=== PATIENT | female | born 1970 | race Caucasian/White ===

== ENCOUNTER 2021-03-21 08:07 | Outpatient (REF) | payer MEDICAID, SELFPAY ==
[2021-03-21 08:43] LABS: Binax Internal Control QC Valid; Binax Now Covid-19 Ag Positive (Negative)
== END 2021-03-21 08:08 | disposition home or self-care (01) ==
LOC: HO.LAB 08:07
PROVIDERS: Visit Provider Internal Medicine
DX: Z20.822 Contact with and (suspected) exposure to COVID-19 (principal)
CPT/HCPCS: C9803

== ENCOUNTER 2021-07-03 07:51 | Outpatient (REF) | payer MEDICAID, SELFPAY ==
--- NOTE | ~2021-07-03 | MM_ITS ---
EXAMINATION: MM DIAGNOSTIC DIGITAL BREAST TOMOSYNTHESIS, BILATERAL US DIAGNOSTIC ULTRASOUND BREAST, LEFT CLINICAL INFORMATION: 50-year-old with left breast pain anterior to posterior outer breast. No discharge or palpable mass. Due for yearly. Prior mammography 2017. No known family history breast cancer. The lifetime risk of breast cancer based on the Tyrer-Cuzick Model is 7%. COMPARISON: Outside mammography: 08/26/2017, 02/08/2015 ([place]) TECHNIQUE: Digital breast tomosynthesis is performed in both the craniocaudal and mediolateral oblique views along with computer-aided detection (CAD). Synthesized 2D images are generated from the tomosynthesis. Additional bilateral CC views are obtained. Ultrasound left breast is targeted to the areas of clinical concern including 12:00 - 3:00 position and axilla. Grayscale imaging and color Doppler are performed without and with harmonics. FINDINGS: There are scattered areas of fibroglandular density (ACR BI-RADS breast composition Category b). There are no significant masses, abnormal calcifications, or other abnormalities. Parenchymal pattern is similar to prior outside exams. There is no developing density or architectural abnormality. No skin thickening or coarsening of the Konstantin's ligaments. Biopsy clip marker again noted on right anterior central breast. No significant changes. Ultrasound left breast demonstrates no cystic or solid mass, architectural abnormality, or focal duct ectasia. No skin thickening or edema tracking in soft tissue planes. The axilla shows several benign nodes with normal narda architecture and color flow. No lymphadenopathy. Results are discussed with the patient at time of visit. MM/MM tomosynthesis diagnostic BI IMPRESSION: -No mammographic evidence of malignancy or inflammatory changes. -Normal left breast ultrasound. ASSESSMENT: BI-RADS 1: Negative RECOMMENDATION: 1. Patient's breast pain should be managed based on the clinical impression. 2. Otherwise, routine annual screening mammography. This patient's information was entered into a reminder system with a target due date for their next mammogram.
== END 2021-07-03 07:52 | disposition home or self-care (01) ==
LOC: HO.MAMMO 07:51
PROVIDERS: Visit Provider Emergency Medicine
DX: N64.4 Mastodynia (principal); Z87.2 Personal history of diseases of the skin and subcutaneous tissue
CPT/HCPCS: 76642; 77062; 77066

== ENCOUNTER 2021-08-31 07:38 | Outpatient (REF) | payer MEDICAID, SELFPAY ==
[2021-08-31 08:55] LABS: MANUAL DIFF FLAG NO
[2021-08-31 10:19] LABS: Alanine Aminotransferase 49 U/L (0-31); Albumin Level 4.4 g/dL (3.5-5.0); Alkaline Phosphatase 96 U/L (39-117); Anion Gap 15 (12-20); Aspartate Amino Transferase 20 U/L (5-31); Bilirubin Total 0.4 mg/dL (0.0-1.0); Blood Urea Nitrogen 12 mg/dL (9-16); Calcium 9.5 mg/dL (8.4-10.2); Carbon Dioxide 26 mmol/L (22-29); Chloride 106 mmol/L (96-108); Cholesterol 222 mg/dL; Estimated Glomerular Filt Rate > 60; Glucose Random 96 mg/dL (60-115); HDL Cholesterol 53 mg/dL; LDL Cholesterol Calculated 143 mg/dl; Potassium 4.9 mmol/L (3.3-5.1); Sodium 142 mmol/L (135-145); Triglycerides 130 mg/dL
[2021-08-31 10:25] LABS: Basophils Percent Auto 0.4 % (0-2); Eosinophils Absolute Auto 0.3 X10*3/uL (0.0-0.4); Eosinophils Percent Auto 3.5 % (0-4); Hematocrit 49.6 % (37.0-47.0); Hemoglobin 16.3 g/dl (12.0-16.0); Imm Gran Abs Auto 0.07 X10*3/uL (0.00-0.03); Imm Gran Pct Auto 0.7 % (0.0-0.4); Lymphocytes Absolute Auto 2.8 X10*3/uL (1.2-4.9); Lymphocytes Percent Auto 29.4 % (20-40); Mean Corpuscular HGB Conc 32.9 g/dl (31.0-35.0); Mean Corpuscular Hemoglobin 29.3 pg (27.0-33.0); Monocytes Absolute Auto 0.6 X10*3/uL (0.1-1.2); Monocytes Percent Auto 6.7 % (2-11); Neutrophils Absolute Auto 5.5 x10*3/uL (2.0-8.3); Neutrophils Percent Auto 59.3 % (45-73); Platelet Count 312 X10*3/uL (160-400); Red Blood Count 5.57 X10*6/uL (4.20-5.50); Red Cell Distribution Width 13.9 % (11.0-16.0); White Blood Count 9.4 X10*3/uL (4.8-10.8)
[2021-08-31 10:40] LABS: Thyroid Stimulating Hormone 1.04 uIU/mL (0.32-4.0)
[2021-08-31 10:44] LABS: Estimated Average Glucose 103 mg/dL; Hemoglobin A1c % 5.2 %
[2021-08-31 11:34] LABS: Creatinine Urine 131.45 mg/dL; Microalbum/Creatinine Ratio Ur 8.3 ug/mg cr
[2021-09-02 08:10] LABS: HBS Num1 0.96 mIU/mL (0-7.99); HBsAGNum1 0.24 S/CO (0.00-0.99); HIV AB/AG Nonreactive (Nonreactive); HIV Num 1 0.05 S/CO (0.00-0.99); Hepatitis B Surface Antigen Negative (Negative); ~Hepatitis B Surface Antibody NONREACTIVE (Nonreactive)
[2021-09-02 08:14] LABS: ~HepC Num1 0.08 S/CO (0.00-0.79); ~Hepatitis C Antibody Nonreactive (Nonreactive)
[2021-09-02 09:37] LABS: Folate 17.3 ng/mL (> or = 4.0); Vitamin B12 955 pg/mL (200-900)
== END 2021-08-31 07:39 | disposition home or self-care (01) ==
LOC: HO.LAB 07:38
PROVIDERS: PCP Family Medicine; Visit Provider Family Medicine
DX: E66.01 Morbid (severe) obesity due to excess calories (principal); R20.2 Paresthesia of skin
CPT/HCPCS: 36415; 80053; 80061; 82043; 82306; 82607; 82746; 83036; 84443; 85025; 86706; 86803; 87340; 87389

== ENCOUNTER 2021-10-26 09:19 | Outpatient (REF) | payer MEDICAID, SELFPAY ==
[2021-10-28 08:12] LABS: HBc Num1 0.06 S/CO (0.00-0.79); Hepatitis B Core Antibody Nonreactive (Nonreactive)
[2021-10-29 20:31] LABS: Hepatitis B Viral DNA Qn - cp <1.00 NOT DETECTED Log IU/mL (NOT DETECTED); Hepatitis B Viral DNA Qn-IU/mL <10 NOT DETECTED IU/mL (NOT DETECTED)
== END 2021-10-26 09:20 | disposition home or self-care (01) ==
LOC: HO.LAB 09:19
PROVIDERS: PCP Family Medicine; Visit Provider Family Medicine
DX: Z20.5 Contact with and (suspected) exposure to viral hepatitis (principal)
CPT/HCPCS: 36415; 86704; 87517

== ENCOUNTER 2023-03-12 16:19 | Outpatient (REF) | payer OTHER, SELFPAY ==
[2023-03-12 17:56] LABS: Anion Gap 13 (12-20); Blood Urea Nitrogen 12 mg/dL (9-16); Calcium 9.5 mg/dL (8.4-10.2); Carbon Dioxide 28 mmol/L (22-29); Chloride 104 mmol/L (96-108); Estimated Glomerular Filt Rate > 60; Glucose Random 92 mg/dL (60-115); Potassium 4.3 mmol/L (3.3-5.1); Sodium 141 mmol/L (135-145)
[2023-03-12 18:15] LABS: TSH reflex Free T4 1.16 uIU/mL (0.32-4.0)
== END 2023-03-12 16:20 | disposition home or self-care (01) ==
LOC: HO.CHCLDS 16:19
PROVIDERS: Visit Provider Internal Medicine
DX: R07.89 Other chest pain (principal); F41.9 Anxiety disorder, unspecified
CPT/HCPCS: 36415; 80048; 84443; 85027

== ENCOUNTER 2023-05-04 10:18 | Outpatient (REF) | payer MEDICAID, SELFPAY ==
[2023-05-04 14:51] LABS: Hematocrit 48.1 % (37.0-47.0); Hemoglobin 15.9 g/dl (12.0-16.0); Mean Corpuscular HGB Conc 33.1 g/dl (31.0-35.0); Mean Corpuscular Hemoglobin 29.1 pg (27.0-33.0); Mean Corpuscular Volume 88.1 fL (80.0-98.0); Platelet Count 326 X10*3/uL (160-400); Red Blood Count 5.46 X10*6/uL (4.20-5.50); Red Cell Distribution Width 13.8 % (11.0-16.0); White Blood Count 9.8 X10*3/uL (4.8-10.8)
[2023-05-04 15:21] LABS: Iron 121 mcg/dL (30-160); Percent Iron Saturation 36 % (15-50); Total Iron Binding Capacity 337 mcg/dL (228-428); Unsaturated Iron Binding 216 ug/dL
[2023-05-04 15:28] LABS: Ferritin 123 ng/mL (10-250)
== END 2023-05-04 10:19 | disposition home or self-care (01) ==
LOC: HO.CHCLDS 10:18
PROVIDERS: Visit Provider Nurse Practitioner
DX: R71.8 Other abnormality of red blood cells (principal); Z86.2 Personal history of diseases of the blood and blood-forming organs and certain disorders involving the immune mechanism
CPT/HCPCS: 36415; 82728; 83540; 85027

== ENCOUNTER 2023-05-13 09:35 | Outpatient (AMB) | payer OTHER, SELFPAY ==
--- NOTE | 2023-05-13 09:52 | A.OFFVIS_ITS ---
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 She has a 52-year-old woman with no significant past medical history but smoking history, says smokes about 6 cigarettes a day. Also has family history with father having myocardial infarction in his 60s. Patient says recently due to her family situation she has lost stress and then stressful situation she gets chest tightness. She had 1 episode this morning when she was arguing with the sister about her father's health and she developed chest tightness. She came to the office and anxious state. Noted to have sinus tachycardia. She says heart rate generally when she is starting to exercise in the 80s and can go up to 120-130, she is started going to the gym about 2 months ago. With exertion she denies any significant chest tightness. She also has associated shortness of breath. No palpitations, lightheadedness, syncope. She says she has never had a heart attack before. She comes for further evaluation with a chest tightness. Her last LDL in the system is from 2021 and is 143. She says recently she had blood work outside and was told that her cholesterol was okay. [facility] Family History Father Heart attack Review of Systems Const Denies weakness ENT Denies dizziness Card Reports chest pain, Reports chest pain with activity, Denies syncope, Denies rapid heart rate, Denies pedal edema, Denies edema, Denies leg edema, Denies lightheadedness, Denies palpitations, Denies dyspnea, Denies dyspnea on exertion and Denies orthopnea Resp Denies cough, Denies dyspnea and Denies dyspnea on exertion GI Denies hematochezia and Denies change in stool character Musc Denies abnormal gait, Denies muscle cramps, Denies muscle weakness, Denies numbness, Denies radiating pain into limb and Denies tingling Neuro Denies abnormal gait, Denies dizziness, Denies syncope, Denies numbness, Denies tingling and Denies weakness Endo Denies palpitations Physical Exam Vital Signs: Last Vital Signs Pulse 114 H 05/13/23 09:54 BP 124/80 05/13/23 09:54 BMI result Body Mass Index 41.9 Const General: cooperative, comfortable, no acute distress, alert, awake, Physically active and anxious Nutritional Appearance: obese Orientation/consciousness: patient oriented x3 HEENT Head: Yes normocephalic and Yes atraumatic Neck Neck: Yes trachea midline, Yes supple and Yes no JVD Resp Effort & Inspection: normal respiratory effort Auscultation: clear to auscultation bilaterally Cardio Jugular venous distension: no JVD Palpation: normal PMI Rate: tachycardic Rhythm: regular rhythm Heart sounds: S1 normal heart sound present, S2 normal heart sound present, no click, no gallops and Murmur heart sound present systolic early GI Inspection: Yes obesity Auscultation: normal bowel sounds Skin General skin exam: no rashes or lesions noted Neuro General: patient oriented x3 and no focal motor deficits Extrem General: Yes no clubbing, cyanosis or edema Psych Appearance: grossly normal Affect: Anxious affect present Office Procedures EKG Details: EKG shows sinus tachycardia with left axis deviation with poor R-wave progression which could be leading to lead placement as well as inferior Q-waves which could be due to body habitus [id number], Complete Assessment & Plan Assessment & Plan (1) 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 She appears to be very anxious. I have advised her to participate in stress mitigation strategies and avoid stressful situations. Meanwhile will start on Toprol-XL 50 mg daily given her sinus tachycardia and symptoms for myocardial pr otection. Meanwhile she will require a workup done as soon as possible including exercise myocardial perfusion imaging as well as an echocardiogram. Possibility of stress-induced cardiomyopathy is likely as well. Complete smoking cessation was advised. If her testing is within normal limits would suggest if she is interested to pursue further evaluation with coronary calcium score to evaluate for presence of atherosclerosis which may change in therapy including requirement for statin therapy. She is currently exercising and advised her to avoid sudden strenuous exertion. If she gets unrelenting chest pain she is advised to seek emergency care. Follow up in the clinic in 4 weeks time, sooner p.r.n.. Thank you for allowing me to partake in the care Orders: Orders CA stress test Today I20.89 - Other forms of angina pectoris CA echo transthoracic complete Today I20.89 - Other forms of angina pectoris NM cardiolite stress test 2 Weeks I20.89 - Other forms of angina pectoris, R07.9 - Chest pain, unspecified Medications: New metoprolol succinate ER (Toprol XL) 50 mg PO DAILY 30 tabs 1RF I20.89 - Other forms of angina pectoris Coding Level of Care Code New Pt Level 4 (57385) Diagnoses Atypical angina I20.89 CPT Codes EKG - CPT: 00708-[id number], Complete ([id number])
[2023-05-13 09:54] VITALS: BP 124/80; PULSE 114; BMI 41.9
== END 2023-05-13 10:28 | disposition home or self-care (01) ==
PROVIDERS: PCP Family Medicine; Visit Provider Internal Medicine Cardiovascular Disease
DX: I20.89 Other forms of angina pectoris (principal)
CPT/HCPCS: 93010; 99204

== ENCOUNTER → 2023-05-13 09:35 | Outpatient (BNVA) | payer OTHER, SELFPAY | PROVIDERS: PCP Family Medicine; Visit Provider Internal Medicine Cardiovascular Disease | DX: I20.89 Other forms of angina pectoris (principal) | CPT/HCPCS: 93005 ==

== ENCOUNTER 2023-05-23 07:57 | Outpatient (REF) | payer OTHER, SELFPAY ==
--- NOTE | ~2023-05-23 | MM_ITS ---
EXAMINATION: MM SCREENING DIGITAL BREAST TOMOSYNTHESIS, BILATERAL CLINICAL INFORMATION: Screening. Asymptomatic. COMPARISON: Mammography: This study is compared with prior exams dating back to 2018. TECHNIQUE: Digital breast tomosynthesis is performed in both the craniocaudal and mediolateral oblique views along with computer-aided detection (CAD). Synthesized 2D images are generated from the tomosynthesis. FINDINGS: There are scattered areas of fibroglandular density (ACR BI-RADS breast composition Category b). There are no significant masses, abnormal calcifications, or other abnormalities. There is a tissue marker present in the right breast from prior benign percutaneous biopsy. MM/MM tomosynthesis screening BI IMPRESSION: No mammographic evidence of malignancy. ASSESSMENT: BI-RADS BI-RADS 2 - Benign Findings RECOMMENDATION: Routine annual mammography screening. 1 year F/U This examination should not preclude the clinical evaluation of a suspicious palpable abnormality. This patient's information was entered into a reminder system with a target due date for their next mammogram.
== END 2023-05-23 07:58 | disposition home or self-care (01) ==
LOC: HO.MAMMO 07:57
PROVIDERS: PCP Family Medicine; Visit Provider Nurse Practitioner
DX: Z12.31 Encounter for screening mammogram for malignant neoplasm of breast (principal)
CPT/HCPCS: 77063; 77067

== ENCOUNTER → 2023-05-23 08:15 | Outpatient (BNV) | payer OTHER, SELFPAY | PROVIDERS: PCP Family Medicine; Visit Provider Radiology Diagnostic Radiology | DX: Z12.31 Encounter for screening mammogram for malignant neoplasm of breast (principal) | CPT/HCPCS: 77063; 77067 ==

== ENCOUNTER → 2023-06-04 12:39 | Outpatient (REF) | payer OTHER, SELFPAY ==
--- NOTE | 2023-06-04 12:45 | CA_ITS ---
Transthoracic Echocardiogram Patient (Last, First, Middle): Silvia Sharma, Gender: Female Date of : 1970 Age: 52 Procedure Date: 06/04/2023 Procedure Type: Transthoracic Echocardiogram Location: OP Height: 149.86 cm Weight: 92.99 kg BSA: 1.86 m2 Heart Rate: bpm BP: 130 / 80 mmHg Business Management Analyst: TO Referring MD: Yeison Britton MD Chemical Reclamation Equipment Operator: Yeison Britton MD Symptoms: I20.89 - Other forms of angina pectoris Study Quality: Fair/Contrast ECG Rhythm: Sinus Conclusions: - 1. Normal LV ejection fraction of 60 65% 2. Normal cardiac valvular Doppler 3. No gross pericardial effusion Findings Procedure Information Contrast agent, definity, is being given per protocol without apparent complications. Left Ventricle Normal left ventricular size, thickness, and systolic function. The visually estimated ejection fraction is between 60-65%. Spectral Doppler is indicative of a normal filling pattern. Right Ventricle Normal right ventricular cavity size and systolic function. Atria Both atria are normal in size. There is no evidence of interatrial shunt. Aortic Valve Normal aortic valve structure and function. There is no aortic valve stenosis. There is no aortic valve regurgitation. Mitral Valve Normal mitral valve structure and function. There is trace mitral valve regurgitation. There is no mitral valve stenosis. Pulmonic Valve The pulmonic valve is likely normal. Tricuspid Valve Normal tricuspid valve structure. Tricuspid regurgitation envelope is inadequate for calculation of right ventricular systolic pressure. Normal right atrial pressure. Great Vessels The pulmonary artery was not well visualized. There is no dilatation of the ascending aorta measuring 3.00 cm. Venous The inferior vena cava is normal in size and collapses greater than 50% with inspiration. Pericardium/Pleural There is no evidence of pericardial effusion. Prior Study Comparison No prior study available for comparison. Measurements 2D Linear Measurements IVSd: 0.96 0.6-0.9/0.6-1.0 cm LVIDd: 4.63 3.9-5.3/4.2-5.9 cm LVIDd Index: 2.49 2.4-3.2/2.2-3.1 cm/m2 LVIDs: 3.27 2.0-3.6 cm LVPWd: 0.94 0.7-1.1 cm LA Diam: 3.30 2.7-3.8/3.0-4.0 cm LAIDs Index: 1.77 1.5-2.3 cm/m2 LV Mass: 186.76 67-162/88-224 g LV Mass Index: 100.41 43-95/49-115 g/m2 LVOT Diam: 2.10 3.0+(-)1.3 cm 2D Systolic Function EF 4C: 58.90 >55% EF 2C: 62.30 >55% EF BiP: 61.10 >55% Mitral Valve MV Pk E: 0.80 MV PK A: 0.69 MV Decel Time: 163.00 E/A: 1.20 E'Lateral: 8.38 E'Medial: 8.81 E/E' Med: 9.00 E/E' Lat: 9.50 PHT: 48.00 MVA PHT: 4.58 Decel [place]: 4.89 Aortic Valve AoV Pk Jerrell: 1.59 AoV Mn Jerrell: 1.11 AoV VTI: 0.29 AoV Pk Grad: 10.00 Aov Mn Grad: 6.00 [place] Cont.VTI: 2.63 LVOT LVOT Pk Jerrell: 1.04 LVOT Mn Jerrell: 0.70 LVOT VTI: 0.22 LVOT Pk Grad: 4.00 LVOT Mn Grad: 2.00 LVOT Diam: 2.10 LVOT Area: 3.46 Diastolic Function MV Pk E: 0.80 MV Pk A: 0.69 E/A: 1.20 E'Medial: 8.81 E/E' Med: 9.00 E' Laterial: 8.38 E/E' Lat: 9.50 Right Ventricle TAPSE (mm): 21.70 TVS' Jerrell: 10.40 Tricuspid Valve RA Press: 3.00 Great Vessels Aorta Sinus of Valsalva: 2.99 2.0-3.[address] [place]: 2.01 1.7-3.4 cm Ao Asc: 3.00 2.1-3.4 cm Updated in Other Vendor System with Status of Final Yeison Britton MD electronically signed on 06/05/2023 12:48:29 PM with status of Final
== END ==
LOC: HO.CARD 12:39
PROVIDERS: PCP Family Medicine; Visit Provider Internal Medicine Cardiovascular Disease
DX: I20.89 Other forms of angina pectoris (principal)
CPT/HCPCS: 93306; Q9957

== ENCOUNTER → 2023-06-04 12:45 | Outpatient (BNV) | payer OTHER, SELFPAY | PROVIDERS: PCP Family Medicine; Visit Provider Internal Medicine Cardiovascular Disease | DX: I20.89 Other forms of angina pectoris (principal) | CPT/HCPCS: 93306 ==

== ENCOUNTER → 2023-06-15 10:08 | Outpatient (REF) | payer OTHER, SELFPAY ==
--- NOTE | 2023-06-15 10:11 | CA_ITS ---
Acquisition Time: 2023-06-15 10:26:52 Total Exercise Time: 00:07:54 Test Indications: CP Medications: SEE H Protocol: CARLITOS Max HR: 169 BPM 101% of Pred: 167 BPM Max BP: 194/090 mmHG Max Work Load: 9.8 METS Exercise stress test exercise 7 min 54 sec of Carlitos protocol achieving 97% MPHR, wiith mild to moderate SOB, no chest discomfort, with resting HTN max BP 194/90, without EKG changes. Echo images obtained by [employer] at rest and immediately post peak exercise. Definity contrast used. Blood pressure returned to baseline at 3 minutes recovery.Test reviewed with Dr. Marks. Referred By: Yeison Britton Overread By: Tanya Yuen
== END ==
LOC: HO.CARD 10:08
PROVIDERS: PCP Family Medicine; Visit Provider Internal Medicine Cardiovascular Disease
DX: I20.89 Other forms of angina pectoris (principal)
CPT/HCPCS: 93350; Q9957

== ENCOUNTER → 2023-06-15 10:11 | Outpatient (BNV) | payer OTHER, SELFPAY | PROVIDERS: PCP Family Medicine; Visit Provider Nurse Practitioner | DX: R06.02 Shortness of breath (principal) | CPT/HCPCS: 93016; 93018; 93350; 93352 ==

== ENCOUNTER 2023-10-05 08:14 | Outpatient (AMB) | payer OTHER, SELFPAY ==
[2023-10-05 08:27] VITALS: BP 122/80; PULSE 103; BMI 39.6
--- NOTE | 2023-10-05 08:27 | MHC.OFFVIS ---
Vital Signs 10/05/23 08:27 Height 4 ft 11 in Weight 196 lb 3.382 oz BMI 39.6 BP 122/80 Blood Pressure Location Lt brachial Position Sitting Pulse 103 H Pulse Source Pulse Oximeter Intake Visit Reasons: 7 wk f/up mibi/ echo(rs) Allergies amoxicillin Allergy (Severe, Verified 10/05/23 08:29) Vomiting Medication List - Last Reconciled 10/05/23 by Mari Guido, GERIATRIC NURSE-C metoprolol succinate ER (Toprol XL) 50 mg PO DAILY HPI HPI 7 wk f/up mibi/ echo(rs): Details: Silvia is a 53-year-old female with past medical history hyperlipidemia, smoking who reported chest tightness and underwent a echocardiogram and stress echocardiogram and now presents for follow-up. Today she reports that she was under extreme stress with the chronic illness and eventual passing of her father. She said she had to deal with several family members which added to her stress levels. At that time she was noticing some tightness in her chest. At this time things have settled down in her life and she is not experiencing any further chest tightness. She has no chest discomfort at rest or with activity. No shortness of breath, lightheadedness, presyncope, syncope, falls, PND, orthopnea or edema. She continues to smoke and is aware of the risks this puts on her health. She does not engage in any routine exercise. COUNTS INCLUDE 234 BEDS AT THE [facility] Family History Father Heart attack Cancer of brain Social History Patient Tobacco Use Status: Former Tobacco user Review of Systems Const All systems reviewed & are unremarkable except as noted in HPI and below ENT Denies dizziness Card Denies chest pain, Denies chest pain at rest, Denies chest pain with activity, Denies rapid heart rate, Denies pedal edema, Denies edema, Denies leg edema, Denies lightheadedness, Denies palpitations, Denies dyspnea, Denies dyspnea on exertion and Denies orthopnea Resp Denies cough, Denies dyspnea and Denies dyspnea on exertion GI Denies hematochezia and Denies change in stool character Musc Denies abnormal gait, Denies limited range of motion, Denies muscle cramps, Denies muscle weakness, Denies numbness, Denies radiating pain into limb, Denies stiffness and Denies tingling Neuro Denies abnormal gait, Denies dizziness, Denies numbness and Denies tingling Endo Denies palpitations Physical Exam Vital Signs: Last Vital Signs Pulse 103 H 10/05/23 08:27 BP 122/80 10/05/23 08:27 BMI result Body Mass Index 39.6 Const General: cooperative, healthy appearing, comfortable and no acute distress Orientation/consciousness: patient oriented x3 Neck Neck: Yes normal visual inspection and Yes no JVD Resp Effort & Inspection: normal respiratory effort Auscultation: clear to auscultation bilaterally, no crackles, no rales, no rhonchi and no wheezes Cardio Jugular venous distension: no JVD Rate: regular rate Rhythm: regular rhythm Heart sounds: S1 normal heart sound present, S2 normal heart sound present, no murmurs and no rubs Neuro General: patient oriented x3 Extrem General: Yes normal to inspection and No no pedal edema Psych Appearance: grossly normal Mental Status: mental status grossly normal Speech and movement: Normal speech and movement present Assessment & Plan Assessment & Plan (1) Atypical angina: Code(s): I20.89 - Other forms of angina pectoris Category: Medical Plan: On last visit reported chest tightness in situations of anxiety/stress. Cardiac risks of smoking, hyperlipidemia and family history. EKG done last visit shows sinus tachycardia, can not exclude prior inferior and anterior infarcts, rate 114. She did undergo an echocardiogram on 06/04/2023 showing EF 60-65%, no valve abnormalities and no regional wall motion abnormality. A stress echocardiogram done on 06/15/2023 showed exercise 8 minutes with shortness of breath, no EKG changes of ischemia, hypertensive blood pressure response, no echo evidence of ischemia or diastolic dysfunction. Today she reports that her prior chest symptoms have resolved. Her stress levels have come down compared to a few months ago. She is now experiencing grief as her father did pass away in July. All test results reviewed with her in detail. Signs and symptoms of angina reviewed. Recommend she increase physical activity, recommended walking for exercise. Eventual smoking cessation discussed. She will continue to follow with her PCP. Cardiology follow-up as needed. (2) HLD (hyperlipidemia): Code(s): E78.5 - Hyperlipidemia, unspecified Category: Medical Plan: [place] LDL goal less than 100. Being followed by her PCP. (3) Smoking: Code(s): F17.200 - Nicotine dependence, unspecified, uncomplicated Category: Social Hx Plan: As above Plan Time spent on chart review, documentation, interview and assessment Coding Level of Care Code Est Pt Level 3 (23853) Diagnoses Atypical angina I20.89 HLD (hyperlipidemia) E78.5 Smoking F17.200 Time Spent (min) 24
== END 2023-10-05 08:49 | disposition home or self-care (01) ==
PROVIDERS: PCP Family Medicine; Visit Provider Nurse Practitioner Family
DX: I20.89 Other forms of angina pectoris (principal); E78.5 Hyperlipidemia, unspecified; F17.200 Nicotine dependence, unspecified, uncomplicated
CPT/HCPCS: 99213

== ENCOUNTER → 2023-10-05 08:14 | Outpatient (BNVA) | payer OTHER, SELFPAY | PROVIDERS: PCP Family Medicine; Visit Provider Nurse Practitioner Family ==

== ENCOUNTER 2023-12-01 14:49 | Outpatient (REF) | payer OTHER, SELFPAY ==
[2023-12-06 10:14] LABS: HPV mRNA E6/E7 Not Detected (Not Detected)
== END 2023-12-01 14:50 | disposition home or self-care (01) ==
LOC: HO.CHCLNP 14:49
PROVIDERS: Visit Provider Family Medicine
DX: Z12.4 Encounter for screening for malignant neoplasm of cervix (principal); Z11.51 Encounter for screening for human papillomavirus (HPV)
CPT/HCPCS: 36415; 87624; 88175

== ENCOUNTER 2024-06-10 15:43 | Outpatient (REF) | payer MEDICAID, SELFPAY ==
--- OUTSIDE RECORDS SUMMARY | 2024-06-10 16:49 | XMS_ITS | Clinical Summary ---
Author Organization [employer] Address [address] [place] [address] Care Team Providers Care Newspaper Peddler Name Role Phone Silvia Bowers MD Primary Care Provider [phone] Allergies Active Allergy Reactions Criticality Noted Date Comments Amoxicillin 02/26/2023 Ibuprofen Nausea And Vomiting 08/08/2008 Medications * This document contains information received from the source organization and may not represent a complete record from that organization. metoprolol succinate XL (Toprol-XL) 50 MG 24 hr tablet TAKE 1 TAB (50 MG) ORALLY DAILY NEED FOLLOW-UP APPT 4 Active terbinafine (LamISIL AT) 1 % cream Apply topically 2 times daily. 90 g 4 Active Semaglutide-Jeff ght Management 1 MG/0.5ML solution auto-injectorIn dications:Obesi ty Inject under the skin. Active Active Problems Problem Noted Date Diagnosed Date Cervical cancer screening 12/01/2023 Assessment & Plan (12/01/2023 9:41 AM EDT): 53 y.o. here for cervical cancer screening. Will continue monitoring following ASCCP guidelines. Tinea pedis of both feet 10/21/2023 Assessment & Plan (10/21/2023 11:27 AM EDT): Prescribing Terbinafine for symptoms. Relevant Medications Terbinafine (Lamisil AT) 1% cream. History of anemia 05/04/2023 Assessment & Plan (05/04/2023 10:28 AM EST): -reports history of severe iron deficiency anemia post- -cbc from 03/12 only reveal elevated hematocrit -iron studies ordered today -will call with results Abnormal hematocrit 05/04/2023 Assessment & Plan (05/04/2023 10:17 AM EST): -slightly elevated hematocrit at 48.6% -no history of asthma or diagnosed obstructive sleep apnea -sleep study ordered in the setting of hypertension, increased neck circumference and reported history of snoring -repeat cbc ordered today Breast cancer screening by mammogram 05/04/2023 Assessment & Plan (05/04/2023 10:07 AM EST): -due for routine screening -reports history of breast lump removals -orders placed for test completion Other chest pain 05/04/2023 Assessment & Plan (05/04/2023 10:16 AM EST): -may be due to anxiety, but will rule out true cardiac abnormality -previously referred to cardiology. Has appointment 05/12 -continue with dietary changes and daily exercise -JAGRUTI-7 score 7; PhQ-9 score 1. Decline medication at this time. Will rather engage with therapy -list of therapist provided -follow-up 3 months or sooner as needed Adjustment disorder with anxious mood 03/13/2023 Assessment & Plan (03/13/2023 1:39 PM EST): During IBH Consult Silvia presenting with anxiety, feeling as if something awful will happen and chest tightness; for a period of 0-6 mo in response to the stress of weight gain and in the context of menopause and home stressors. Silvia reported that she has had periods of anxiety in the past but that intensity and frequency of anxiety has increased over the past 3 months due to a significant increase in her weight. She reported that she has been taking nutritional supplements through [employer] and that she would be stopping them. She expressed concern around her health with the weight gain and reported that she would like to stop smoking cigarettes. PROTECTIVE FACTORS high family cohesion Interventions provided: [Check all that apply] Supportive counseling Validation of emotions Unconditional positive regard Psychoeducation on anxiety symptoms and coping mechanisms Motivational Interviewing Emotion Regulation Measurement Tools [Check all that apply and include scores] JAGRUTI-7- score of 4 indicating some impact on social and occupational functioning STAGES OF CHANGE COMPLETATION PLAN: (check all that apply) New/Additional Services needed [facility], Behavioral Health Integration Plan Patient Self Plan Patient to utilize skills provided in intervention , Patient to reach out to [facility] team as needed, and Patient to engage in OP therapy Rule Out Diagnoses- Generalized Anxiety Disorder Behavioral Health Diagnoses At this time Silvia meets criteria for Visit Diagnoses: Problem List Items Addressed This Visit Other Adjustment disorder with anxious mood Class 1 obesity due to exces s calories with serious comorbidity and body mass index (BMI) of 34.0 to 34.9 in adult 06/17/2012 Assessment & Plan (02/22/2024 11:18 AM EST): Starting weight 206 lbs Current weight 175 lbs Total weight loss 31 lbs , 15%. Pt responding well to current dose, advised to begin muscle training with cardio. Pt will continue to follow up with nurse at [facility] to manage medication. Pt declined TDAP, PCV-20, Influenza, Covid, and Zoster today. Assessment & Plan (10/21/2023 11:26 AM EDT): Referral to [facility] for further assistance with weight loss. 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 Alcohol Use Standard Drinks/Week Comments Never 0 (1 standard drink = 0.6 oz pur e alcohol) Depression Answer Date Recorded Patient Health Questionnaire-9 Score 1 05/04/2023 Patient Health Questionnaire-9 Score 1 05/04/2023 Last PHQ-9: Questionnaire Data Not on file 0 05/04/2023 Housing Stability Answer Date Recorded What is your housing situation today? I have trisha esqueda 05/04/[address] you li ve. Do you have problems with any of the following? None of the above 05/04/2023 Food Insecurity Answer Date Recorded Within the past 12 months, y ou worried that your food would run out before you got money to buy more: Never True 05/04/2023 Within the past 12 months,th e food you bought just didn't last and you didn't have enough money to get more: Never True Transportation Answer Date Recorded In the past 12 months, has l ack of transportation kept you from medical appts, meetings, work or from getting things needed for daily living? No 05/04/2023 Utilities Answer Date Recorded In the past 12 months, has t he electric, gas, oil or water company threatened to shut off services in your home? No 05/04/2023 Depression Answer Date Recorded Patient Health Questionnaire-2 Score 1 05/04/2023 Comments No Sex and Gender Information Value Date Recorded Sex Assigned at Female 01/06/2022 10:40 AM EDT Legal Sex Female 10:40 AM EDT Gender Identity Female 01/06/2022 10:40 AM EDT Sexual Orientation Don't know 01/06/2022 10 :40 AM EDT Last Filed Vital Signs Vital Sign Reading Time Taken Comments Blood Pressure 124/78 04/12/2024 9:03 AM EST Pulse 78 04/12/2024 9:03 AM EST Temperature 36.6 ??C (97.8 ??F) 04/12/2024 9:03 AM ES T Respiratory Rate 20 04/12/2024 9:03 AM EST Oxygen Saturation 98% 04/12/2024 9:03 AM EST Inhaled Oxygen Concentration - - Weight 78.3 kg (172 lb 9.6 oz) 04/12/2024 9:03 A M EST Height 151 cm (4' 11.45 ) 04/12/2024 9:03 AM EST Body Mass Index 34.34 04/12/2024 9:03 AM EST Plan of Treatment Health Maintenance Due Date Last Done Comments CT Colonography 1969 Colonoscopy 1969 Colorectal Cancer Screening 1969 FIT DNA/Cologuard 1969 FIT 1969 FOBT 1969 Sigmoidoscopy 1969 Alcohol/Substance Use Screening 1981 Hepatitis B Vaccines (1 of 3 - 19+ 3-dose series) 1988 Pneumococcal Vaccine: 50+ Years (1 of 2 - PCV) 1988 Depression Screening 05/04/2024 05/04/2023, 05/04/2023 SDOH Screening 05/04/2024 05/04/2023 Influenza Vaccine (#1) 2024 Postp oned from 11/08/2023 (Patient Refused) COVID-19 Vaccine (1 - 2023-2 5 season) 2025 Postponed from 11/07 (Patient Refused) DTaP/Tdap/Td Vaccines (3 - T d or Tdap) 02/21/2025 06/17/2012, 10/21/2000 Postponed from 06/17/2022 (Patient Refused) Tobacco Screening 02/21/2025 02/22/2024 Zoster Vaccines (1 of 2) 02/21/2025 Pos tponed from 09/19/2019 (Patient Refused) Mammogram 05/22/2025 05/23/2023, 07/03/2021, 07/03/2021 Lipid Panel 08/31/2026 08/31/2021 Cervical Cancer Screening 11/30/2028 HPV/Cotest 11/30/2028 12/01/2023 Pap Smear 11/30/2028 12/01/2023 RSV Patients and Patients Aged 60 years or older (1 - 1-dose 75+ series) 2044 HIV Screening Completed 08/31/2021 Hepatitis C Screening Completed 08/31/2021 HIB Vaccines Aged Out No longer eligi ble based on patient's age to complete this topic HPV Vaccines Aged Out No longer eligi ble based on patient's age to complete this topic Hepatitis A Vaccines Aged Out No long er eligible based on patient's age to complete this topic IPV Vaccines Aged Out No longer eligi ble based on patient's age to complete this topic Meningococcal Vaccine Aged Out No blake demetrio eligible based on patient's age to complete this topic RSV under 20 months Aged Out No longe r eligible based on patient's age to complete this topic Rotavirus Vaccines Aged Out No longer eligible based on patient's age to complete this topic Procedures Procedure Name Priority Date/Time Associated Diagnosis Comments THINPREP IMAGING PAP AND HPV MRNA E6/E7 Routine 12/01/2023 9:30 AM EDT BI MAMMOGRAM SCREENING TOMOSYNTHESIS BILATERAL Routine 05/23/2023 8:15 AM EDT Breast cancer screening by mammogram [facility] HISTORICAL HEPATITIS C ANTIBODY RFLX Routine 08/31/2021 8:53 AM EDT [facility] HISTORICAL HIV AB/AG Routine 08/31/2021 8:53 AM EDT [facility] HISTORICAL LIPID PANEL Routine 08/31/2021 8:53 AM EDT from Last 3 Months or Most Recently Relevant to Health Maintenance Results * ThinPrep Imaging Pap and HPV mRNA E6/E7 (12/01/2023 9:30 AM EDT) HPV nRNA E6/E7 Not Detected Not Detected [facility] Comment:Methodology: Transcr iption-Mediated AmplificationThis assay detects E6/E7 viral messenger RNA (mRNA) from 14high-risk HPV types (16,18,31,33,35,39,45,51,52,56,58,59,66,68).Cervical sources are required for HPV testing.If a vaginal source from a patient who has had atotal hysterectomy with removal of cervix wassubmitted, please contact the testing laboratoryfor alternative testing options.For additional information, please refer tohttp://education.BioSET/faq/WSG445t5(This link if provided for information/educational purposes only.)THIS TEST WAS PERFORMED AT:[facility] [place] [id number] WEEKS MD SOURCE: SEE NOTE [facility] Comment:None given Report Status: [facility] Clinical Information: SEE NOTE [facility] Comment:None given LMP: SEE NOTE [facility] Comment:NONE GIVEN Prev. PAP: SEE NOTE [facility] Comment:NONE GIVEN Prev. BX: SEE NOTE [facility] Comment:NONE GIVEN Statement Of Adequacy: SEE NOTE [facility] Comment:Satisfactory for noe luation.Endocervical/transformation zone componentpresent. General Categorization: [facility] Interpretation/Result: SEE NOTE [facility] Comment:Cytology Results: Ne gative for intraepitheliallesion or malignancy. Cytology Comment SEE NOTE [facility] Comment:This Pap test has be en evaluated with computerassisted technology. Business Administration Program Chair: SEE NOTE [facility] Comment:DCR, CT(ASCP)CT scre ening location: [place] [address] Review Business Administration Program Chair: SEE NOTE [facility] Comment:MXD, CT (ASCP)CT scr eening location: [place] [address] Pathologist [facility] PAP Infection [facility] See Note SEE NOTE [facility] Comment:EXPLANATORY NOTE:The Pap is a screening test for cervical cancer. It isnot a diagnostic test and is subject to false negativeand false positive results. It is most reliable when asatisfactory sample, regularly obtained, is submittedwith relevant clinical findings and history, and whenthe Pap result is evaluated along with historic andcurrent clinical information. 12/01/2023 9:30 AM EDT 12/01/2023 2:51 PM EDT Narrative [facility] - 12/07/2023 2:27 PM EDT SEE SCANNED RESULTS IN EMR us Silvia Bowers MD LAB PATHOLOGY ORDERABLES Dee l Result [facility] [address] [place] [address] [phone] * BI Mammogram Screening Tomosynthesis Bilateral (05/23/2023 8:15 AM EDT) Anatomical Region Laterality Modality Breast Bilateral Mammography 05/23/2023 8:15 AM EDT Narrative 06/05/2023 4:04 PM EDT ? [facility] ? [address] ?[place] [id number] ? Mammography Report ? Signed ? Patient: Lapite,Silvia ?MR#: [id number] ?? [id number] ? : 1970 ?Acct:[id number] ? Age/Sex: 52 / F ?ADM Date: 05/23/23 ? Loc: HO.MAMMO ? Attending Dr: Janneth Appram ? Ordering Physician: Sonia,Janneth ?Results: 2Benign Fi ?? ndings ? Date of Service: 05/23/23 ?Follow Up: 1 Year From Orig ?? inal Mammogram ? Procedure(s): MM tomosynthesis screening BI ?? Accession Number(s): [id number] ? cc: Janneth Scott; Silvia Bowers MD ? EXAMINATION: ?? MM SCREENING DIGITAL BREAST TOMOSYNTHESIS, BILATERAL ? CLINICAL INFORMATION: ? Screening. Asymptomatic. ? COMPARISON: ?? Mammography: This study is compared with prior exams dating back to ?? 2017. ? TECHNIQUE: ?? Digital breast tomosynthesis is performed in both the craniocaudal and ?? mediolateral oblique views along with computer-aided detection (CAD). ?? Synthesized 2D images are generated from the tomosynthesis. ? FINDINGS: ?? There are scattered areas of fibroglandular density (ACR BI-RADS breast ?? composition Category b). ? There are no significant masses, abnormal calcifications, or other ?? abnormalities. ? There is a tissue marker present in the right breast from prior benign ?? percutaneous biopsy. ? MM/MM tomosynthesis screening BI ?? IMPRESSION: ?? No mammographic evidence of malignancy. ? ASSESSMENT: ? BI-RADS BI-RADS 2 - Benign Findings ? RECOMMENDATION: ?? Routine annual mammography screening. ? 1 year F/U ? This examination should not preclude the clinical evaluation of a ?? suspicious palpable abnormality. ? This patient's information was entered into a reminder system with a ?? target due date for their next mammogram. ? Dictated By: ?Amparo Marrufo MD ? Signed By: ?<Electronically signed by Amparo Marrufo MD in OV> ? 06/05/23 1601 ? DD/ 0815 ? TD/TT: ? Community Nurse: ? Procedure Note Jean Paul, Image - 06/05/2023 [facility] [address] [place] [address] Mammography Report Signed Patient: Silvia SharmaMR#: [id number] : 1970Acct:[id number] Age/Sex: 52 / FADM Date: 05/23/23 Loc: HO.MAMMO Attending Dr: Janneth Scott Ordering Physician: Janneth ScottResults: Damaris solano Date of Service: 05/23/23Follow Up: 1 Year From Orig inal Mammogram Procedure(s): MM tomosynthesis screening BI Accession Number(s): [id number] cc: Janneth Scott; Silvia Bowers MD EXAMINATION: MM SCREENING DIGITAL BREAST TOMOSYNTHESIS, BILATERAL CLINICAL INFORMATION: Screening. Asymptomatic. COMPARISON: Mammography: This study is compared with prior exams dating back to 2018. TECHNIQUE: Digital breast tomosynthesis is performed in both the craniocaudal and mediolateral oblique views along with computer-aided detection (CAD). Synthesized 2D images are generated from the tomosynthesis. FINDINGS: There are scattered areas of fibroglandular density (ACR BI-RADS breast composition Category b). There are no significant masses, abnormal calcifications, or other abnormalities. There is a tissue marker present in the right breast from prior benign percutaneous biopsy. MM/MM tomosynthesis screening BI IMPRESSION: No mammographic evidence of malignancy. ASSESSMENT: BI-RADS BI-RADS 2 - Benign Findings RECOMMENDATION: Routine annual mammography screening. 1 year F/U This examination should not preclude the clinical evaluation of a suspicious palpable abnormality. This patient's information was entered into a reminder system with a target due date for their next mammogram. Dictated By: Amparo Marrufo MD Signed By: <Electronically signed by Amparo Marrufo MD in OV> 06/05/23 1601 DD/ 0815 TD/TT: Community Nurse: Janneth Scott NP IMG BI PROCEDURES Edited Result - Final * HEPATITIS C ANTIBODY RFLX (08/31/2021 8:53 AM EDT) Hepatitis C Antibody Nonreactive Nonreactive [facility] Comment: Antibodies to HCV not detected; does not exclude early acute HCV infection. 08/31/2021 8:53 AM EDT Silvia Bowers MD HISTORICAL/NON ORDERABLE LABS Final Result [facility] [address] * HIV AB/AG (08/31/2021 8:53 AM EDT) HIV AB/AG Nonreactive Nonreactive [facility] Comment: HIV-1 p24 Ag and/or HIV-1/HIV-2 Ab not detected. ?? A test result that is nonreactive does not exclude the possibility of exposure to or infection with HIV-1 and/or HIV-2. Nonreactive results in this assay for individuals with prior exposure to HIV-1 and/or HIV-2 may be due to antigen and antibody levels that are below the limit of detection of this assay. ?? The [facility] HIV Ag/Ab Combo assay result and supplemental assay results should be interpreted in conjunction with the patient's clinical presentation, history and other laboratory results. ??If the results are inconsistent with clinical evidence, additional testing is suggested to confirm the result. Hepatitis B Surface Antibody NONREACTIVE Nonreactive [facility] Comment:Nonreactive: < 8.00 mIU/mL Hepatitis B Surface Antigen Negative Negative [facility] 08/31/2021 8:53 AM EDT us Silvia Bowers MD HISTORICAL/NON ORDERABLE LABS Final Result [facility] [address] * (ABNORMAL) LIPID PANEL (08/31/2021 8:53 AM EDT) [facility] Signature Cholesterol 222 mg/dL [facility] Comment: Desirable Cholesterol: ?less than 200 mg/dL Borderline High Cholesterol: ??200-239 mg/dL High Cholesterol: ? greater than 239 mg/dL HDL Cholesterol 53 mg/dL [facility] Comment: Desirable HDL: ??greater than 40 mg/dL ?? Note: This HDL assay may give artificially ? low results in patients with liver disease. LDL Cholesterol Calculated 143 mg/dl [facility] Comment: Desirable LDL: ? less than 100 mg/dL Near Optimal/Above Optimal LDL: ??110-129 mg/dL Borderline High LDL: ? 130-159 mg/dL High LDL: ?160-189 mg/dL Very High LDL: ? greater than or equal to ?190 mg/dL Triglycerides 130 mg/dL [facility] Comment: Desirable Triglyceride: ? less than 150 mg/dL Borderline High Triglyceride ??150-199 mg/dL High Triglyceride: ?200-499 mg/dL Very High Triglyceride: ? greater than or equal to ? 5OO mg/dL Vitamin D 25-OH Total 20.0 >30 ng/mL [facility] Comment: Health Based Reference Values* ?? < 20 ??ng/mL ??Deficient 20-30 ng/mL ??Insufficient > 30 ??ng/mL ??Sufficient ?? *Gary MAGALLON. N Engl J Med. 2007;357:266-280 ?? Care must be taken in interpreting Vitamin D results from different laboratories and methodologies. ??Published data demonstrated that results from patients undergoing hemodialysis may show a negative bias when tested with various automated 25-OH vitamin D assays when compared to LC-MS/MS. ?? When testing samples from patients whose predominant form of Vitamin D is Vitamin D2, such as patients receiving Vitamin D2 supplementation, results that are subtherapeutic should be confirmed with another method such as LC-MS/MS. Thyroid Stimulating Hormone 1.04 0.32 - 4.0 uIU/mL [facility] Comment:TSH 3rd Generation ( [facility]) Alanine Aminotransferase 49(H) 0 - 31 U/L [facility] Albumin Level 4.4 3.5 - 5.0 g/dL [facility] Alkaline Phosphatase 96 39 - 117 U/L [facility] Anion Gap 15 12 - 20 [facility] Aspartate Amino Transferase 20 5 - 31 U/L [facility] Bilirubin Total 0.4 0.0 - 1.0 mg/dL [facility] Blood Urea Nitrogen 12 9 - 16 mg/dL [facility] Calcium 9.5 8.4 - 10.2 mg/dL [facility] Carbon Dioxide 26 22 - 29 mmol/L [facility] Chloride 106 96 - 108 mmol/L [facility] Creatinine, Serum 0.82 0.5 - 1.4 mg/dL [facility] Estimated Glomerular Filt Rate >60 [facility] Comment: NOTE: ??For -Senegalese individuals, multiply the result ?by . ?? Chronic Kidney Disease: ??Estimated GFR < 60 mL/min/1.73m2 Severe Kidney Disease: ??Estimated GFR < 15 mL/min/1.73m2 Glucose Random 96 60 - 115 mg/dL [facility] Potassium 4.9 3.3 - 5.1 mmol/L [facility] Comment:Sample slightly hemo lyzed Sodium 142 135 - 145 mmol/L [facility] Total Protein 7.0 6.5 - 8.0 g/dL [facility] 08/31/2021 8:53 AM EDT us Silvia Bowers MD HISTORICAL/NON ORDERABLE LABS Final Result Performing Organization Address City/State/[facility] Co de Phone Number [facility] [address] from Last 3 Months or Most Recently Relevant to Health Maintenance Insurance [facility] C[facility] Care Teams Newspaper Peddler Relationship Specialty Start Date End Date Silvia Bowers MD [address] [place] [id number] PCP - General Family Medicine 08/15/21
== END 2024-06-10 15:44 | disposition home or self-care (01) ==
LOC: HO.MAMMO 15:43
PROVIDERS: PCP Family Medicine; Visit Provider Family Medicine
DX: Z12.31 Encounter for screening mammogram for malignant neoplasm of breast (principal)
CPT/HCPCS: 77063; 77067

== ENCOUNTER → 2024-06-10 15:45 | Outpatient (BNV) | payer MEDICAID, SELFPAY | PROVIDERS: PCP Family Medicine; Visit Provider Internal Medicine | DX: Z12.31 Encounter for screening mammogram for malignant neoplasm of breast (principal) | CPT/HCPCS: 77063; 77067 ==

== ENCOUNTER 2024-08-22 11:50 | Outpatient (REF) | payer MEDICAID, SELFPAY ==
--- OUTSIDE RECORDS SUMMARY | 2024-08-22 13:24 | XMS_ITS | Clinical Summary ---
Author Organization [employer] Address [address] [place] [address] Care Team Providers Care Stapler Coil [employer] Name Role Phone Silvia Bowers MD Primary Care Provider [phone] Allergies Active Allergy Reactions Criticality Noted Date Comments Amoxicillin 02/26/2023 Ibuprofen Nausea And Vomiting 08/08/2008 Medications * This document contains information received from the source organization and may not represent a complete record from that organization. metoprolol succinate XL (Toprol-XL) 50 MG 24 hr tablet TAKE 1 TAB (50 MG) ORALLY DAILY NEED FOLLOW-UP APPT 09/29/19 24 Active terbinafine (LamISIL AT) 1 % cream Apply topically 2 times daily. 90 g 10/21/19 24 025 Discontinued Semaglutide-We ight Management 1 MG/0.5ML solution auto-injectorI ndications:Obe sity Inject under the skin. 025 Discontinued Active Problems Problem Noted Date Diagnosed Date Class 2 obesity with body ma ss index (BMI) of 36.0 to 36.9 in adult 08/22/2024 Vaginal cysts 08/22/2024 Obstructive sleep apnea syndrome 08/22/2024 Cervical cancer screening 12/01/2023 Assessment & Plan [...] intervention , Patient to reach out to [facility] team as needed, and Patient to engage [...] continue to follow up with nurse at [facility] to manage medication. Pt declined TDAP, PCV-20, Influenza, Covid, and Zoster today. Assessment & Plan (10/21/2023 11:26 AM EDT): Referral to [employer] for further assistance with weight loss. Tobacco abuse 12/11/2011 Rosacea 06/10/2005 Encounters Date Type Department Care Team Description 08/22/2024 11:00 AM EDT Office Visit [facility] [address] [place] [address] Silvia Bowers MD Class 2 obesity with body mass index (BMI) of 36.0 to 36.9 in adult, unspecified obesity type, unspecified whether serious comorbidity present (Primary Dx); Vaginal cysts; Obstructive sleep apnea syndrome 08/22/2024 Travel 08/19/2024 Telephone [facility] [address] [place] [address] Silvia Bowers MD Chart Prep 08/11/2024 Patient Outreach [facility] [address] [place] [address] Silvia Bowers MD Pre-visit Planning (SDOH screening completed on 07/13/24) 07/13/2024 Patient Outreach [facility] [address] [place] [address] Silvia Bowers MD Pre-visit Planning (SDOH screening negative and Tobacco screening positive) 06/10/2024 Orders Only [facility] [address] [place] [address] Silvia Bowers MD from Last 3 Months Immunizations Immunization Administration Dates Next Due Tdap 06/17/2012,10/21/2000 Family [...] housing situation today? I have trisha esqueda 07/13/[address] you li ve. Do you have problems with any of the following? None of the above 07/13/2024 Food Insecurity Answer Date Recorded Within the past 12 months, y ou worried that your food would run out before you got money to buy more: Never True 07/13/2024 Within the past 12 months,th e food you bought just didn't last and you didn't have enough money to get more: Never True 09/2024 Transportation Answer Date Recorded In the past 12 months, has l ack of transportation kept you from medical appts, meetings, work or from getting things needed for daily living? No 07/13/2024 Utilities Answer Date Recorded In the past 12 months, has t he electric, gas, oil or water company threatened to shut off services in your home? No 07/13/2024 Depression Answer Date Recorded Patient Health Questionnaire-2 Score 1 05/04/2023 Internet Access Answer Date Recorded Internet Access Q1 Yes 07/13/2024 Internet Access Q2 Not on file 07/13/2024 Comments No Sex and Gender Information Value Date Recorded Sex Assigned at Female 01/06/2022 10:40 AM EDT Legal Sex Female 10:40 AM EDT Gender Identity Female 01/06/2022 10:40 AM EDT Sexual Orientation Don't know 01/06/2022 10 :40 AM EDT Last Filed Vital Signs Vital Sign Reading Time Taken Comments Blood Pressure 126/77 08/22/2024 11:08 AM EDT Pulse 88 08/22/2024 11:08 AM EDT Temperature 36.9 ??C (98.5 ??F) 08/22/2024 11:08 AM E DT Respiratory Rate 16 08/22/2024 11:08 AM EDT Oxygen Saturation 98% 08/22/2024 11:08 AM EDT Inhaled Oxygen Concentration - - Weight 83 kg (183 lb) 08/22/2024 11:08 AM EDT Height 151 cm (4' 11.45 ) 08/22/2024 11:08 AM ED T Body Mass Index 36.4 08/22/2024 11:08 AM EDT Plan of Treatment Health Maintenance Due Date Last Done Comments CT Colonography 1969 Colonoscopy 1969 Colorectal Cancer Screening 1969 FIT DNA/Cologuard 1969 FIT 1969 FOBT 1969 Sigmoidoscopy 1969 Disability Screening 1969 Alcohol/Substance Use Screening 1981 Hepatitis B Vaccines (1 of 3 - 19+ 3-dose series) 1988 Pneumococcal Vaccine: 50+ Years (1 of 2 - PCV) 1988 Depression Screening 05/04/2024 05/04/2023, 05/04/19 24 Influenza Vaccine (Season Ended) 2024 COVID-19 Vaccine ( - season) 2025 Postponed from 11/08/2023 (Patient Refused) DTaP/Tdap/Td Vaccines (3 - Td or Tdap) 02/21/2025 06/17/2012, 10/21/2000 Postponed from 06/17/2022 (Patient Refused) Tobacco Screening 02/21/2025 02/22/2024 Zoster Vaccines (1 of 2) 02/21/2025 Pos tponed from 09/19/2019 (Patient Refused) SDOH Screening 07/13/2025 07/13/2024 Mammogram 06/10/2026 06/10/2024, 0308/2023, 07/03/2021, Additional history exists Lipid Panel 08/31/2026 08/31/2021 Cervical Cancer Screening [...] patient's age to complete this topic Meningococcal B Vaccine Aged Out No l onger eligible based on patient's age to complete [...] Procedure Name Priority Date/Time Associated Diagnosis Comments BI MAMMOGRAM SCREENING TOMOSYNTHESIS BILATERAL Routine 06/10/2024 3:45 PM EDT THINPREP IMAGING PAP AND HPV MRNA E6/E7 Routine 12/01/2023 9:30 AM EDT ZJOSIE HISTORICAL HEPATITIS C ANTIBODY RFLX Routine 08/31/2021 8:53 AM EDT ZZZ HISTORICAL HIV AB/AG Routine 08/31/2021 8:53 AM EDT ZZZ HISTORICAL LIPID PANEL Routine 08/31/2021 8:53 AM EDT from Last 3 Months or Most Recently Relevant to Health Maintenance Results * BI Mammogram Screening Tomosynthesis Bilateral (06/10/2024 3:45 PM EDT) Anatomical Region Laterality Modality Breast Bilateral Mammography 06/10/2024 3:45 PM EDT Narrative 06/17/2024 5:12 PM EDT ? [facility] ? [address] ?[place] [address] ?[phone] ? Mammography Report ? Signed ? Patient: Silvia Sharma ?MR#: [id number] ?? [id number] ? : 1970 ?Acct:[id number] ? Age/Sex: 53 / F ?ADM Date: 06/10/24 ? Loc: HO.MAMMO ? Attending Dr: Silvia Bowers MD ? Ordering Physician: Silvia Bowers MD ?Results: 1Nega ?? tive ? Date of Service: 06/10/24 ?Follow Up: 1 Year From Orig ?? inal Mammogram ? Procedure(s): MM tomosynthesis screening BI ?? Accession Number(s): [id number] ? cc: Silvia Bowers MD ? EXAMINATION: ?? MM SCREENING DIGITAL BREAST TOMOSYNTHESIS, BILATERAL ? CLINICAL INFORMATION: ? Screening. Asymptomatic. ? COMPARISON: ?? Mammography: Comparison is made with available priors ? TECHNIQUE: ?? Digital breast mammography with tomosynthesis is performed in both the ?? craniocaudal and mediolateral oblique views along with computer-aided ?? detection (CAD). ? FINDINGS: ?? There are scattered areas of fibroglandular density (ACR BI-RADS breast ?? composition Category b). ? There are no significant masses, abnormal calcifications, or other ?? abnormalities. ? MM/MM tomosynthesis screening BI ?? IMPRESSION: ?? No mammographic evidence of malignancy. ? ASSESSMENT: ? BI-RADS BI-RADS 1 - Negative ? RECOMMENDATION: ?? Routine annual mammography screening. ? 1 year F/U ? This examination should not preclude the clinical evaluation of a ?? suspicious palpable abnormality. ? This patient's information was entered into a reminder system with a ?? target due date for their next mammogram. ? Electronically signed by: ??Matilda Anderson DO ??06/17/2024 05:09 PM EDT ? Dictated By: ?Matilda Anderson DO ? Signed By: ?<Electronically signed by Matilda Anderson, DO in OV> ? 06/17/24 1709 ? DD/ 1545 ? TD/TT: 06/10/24 1603 ? Workforce Advisor: ? Procedure Note Singhter, Image - 06/17/2024 [facility] [address] [place] [address] Mammography Report Signed Patient: Silvia SharmaMR#: [id number] : 1970Acct:[id number] Age/Sex: 53 / FADM Date: 06/10/24 Loc: [facility].MAMMO Attending Dr: Silvia Bowers MD Ordering Physician: Silvia Bowersesults: 1Nega tive Date of Service: 06/10/24Follow Up: 1 Year From Orig inal Mammogram Procedure(s): MM tomosynthesis screening BI Accession Number(s): [id number] cc: Silvia Bowers MD EXAMINATION: MM SCREENING DIGITAL BREAST TOMOSYNTHESIS, BILATERAL CLINICAL INFORMATION: Screening. Asymptomatic. COMPARISON: Mammography: Comparison is made with available priors TECHNIQUE: Digital breast mammography with tomosynthesis is performed in both the craniocaudal and mediolateral oblique views along with computer-aided detection (CAD). FINDINGS: There are scattered areas of fibroglandular density (ACR BI-RADS breast composition Category b). There are no significant masses, abnormal calcifications, or other abnormalities. MM/MM tomosynthesis screening BI IMPRESSION: No mammographic evidence of malignancy. ASSESSMENT: BI-RADS BI-RADS 1 - Negative RECOMMENDATION: Routine annual mammography screening. 1 year F/U This examination should not preclude the clinical evaluation of a suspicious palpable abnormality. This patient's information was entered into a reminder system with a target due date for their next mammogram. Electronically signed by: Matilda Anderson DO 06/17/2024 05:09 PM EDT RP Dictated By: Matilda Anderson DO Signed By: <Electronically signed by Matilda Anderson DO in OV> 06/17/24 1709 DD/ 1545 TD/TT: 06/10/24 1603 Workforce Advisor: us Silvia Bowers MD IMG BI PROCEDURES Final Resul t * ThinPrep Imaging Pap and HPV mRNA E6/E7 (12/01/2023 9:30 AM EDT) HPV nRNA E6/E7 Not Detected Not Detected [facility] Comment:Methodology: Transcr iption-Mediated AmplificationThis assay detects E6/E7 viral messenger RNA (mRNA) from 14high-risk HPV types (16,18,31,33,35,39,45,51,52,56,58,59,66,68).Cervical sources are required for HPV testing.If a vaginal source from a patient who has had atotal hysterectomy with removal of cervix wassubmitted, please contact the testing laboratoryfor alternative testing options.For additional information, please refer [email or web address] Old Reader/faq/SMS756v9(This link if provided for information/educational purposes only.)THIS TEST WAS PERFORMED AT:[facility] [address] [id number] WEEKS MD SOURCE: SEE NOTE [facility] Comment:None given Report Status: [facility] Clinical Information: SEE NOTE [facility] Comment:None given LMP: SEE NOTE [facility] Comment:NONE GIVEN Prev. PAP: SEE NOTE [facility] Comment:NONE GIVEN Prev. BX: SEE NOTE [facility] Comment:NONE GIVEN Statement Of Adequacy: SEE NOTE [facility] Comment:Satisfactory for noe luation.Endocervical/transformation zone componentpresent. General Categorization: [facility] Interpretation/Result: SEE NOTE [facility] Comment:Cytology Results: Ne gative for intraepitheliallesion or malignancy. Cytology Comment SEE NOTE [facility] Comment:This Pap test has be en evaluated with computerassisted technology. Antiquer: SEE NOTE [facility] Comment:DCR, CT(ASCP)CT scre ening location: [place] [address] Review Antiquer: SEE NOTE [facility] Comment:MXD, CT (ASCP)CT scr eening location: [place] [address] Pathologist [facility] PAP Infection [facility] See Note SEE NOTE [facility] Comment:EXPLANATORY NOTE:The Pap is a screening test for cervical cancer. It isnot a diagnostic test and is subject to false negativeand false positive results. It is most reliable when asatisfactory sample, regularly obtained, is submittedwith relevant clinical findings and history, and whenthe Pap result is evaluated along with historic andcurrent clinical information. 12/01/2023 9:30 AM EDT 12/01/2023 2:51 PM EDT Narrative [facility] - 12/07/2023 2:27 PM EDT SEE SCANNED RESULTS IN EMR us Silvia Bowers MD LAB PATHOLOGY ORDERABLES Dee mendez Result [facility] [address] [place] [address] [phone] * HEPATITIS C ANTIBODY RFLX (08/31/2021 8:53 AM EDT) [facility] Hepatitis C Antibody Nonreactive Nonreactive [facility] Comment: Antibodies to HCV not detected; does not exclude early acute HCV infection. 08/31/2021 8:53 AM EDT Silvia Bowers MD HISTORICAL/NON ORDERABLE LABS Final Result Performing Organization Address [facility] de Phone Number [facility] [address] [place] [address], * HIV AB/AG (08/31/2021 8:53 AM EDT) [facility] HIV AB/AG Nonreactive Nonreactive [facility] [...] detection of this assay. ?? The [employer] HIV Ag/Ab Combo assay result and supplemental assay results should be interpreted in conjunction with the patient's clinical presentation, history and other laboratory results. ??If the results are inconsistent with clinical evidence, additional testing is suggested to confirm the result. Hepatitis B Surface Antibody NONREACTIVE Nonreactive [facility] Comment:Nonreactive: < 8.00 mIU/mL Hepatitis B Surface Antigen Negative Negative [facility] 08/31/2021 8:53 AM EDT Silvia Bowers MD HISTORICAL/NON ORDERABLE LABS Final Result Performing Organization Address [facility] Co de Phone Number [facility] [address] [place] [address], * (ABNORMAL) LIPID PANEL (08/31/2021 8:53 AM EDT) Cholesterol 222 mg/dL [facility] Comment: Desirable Cholesterol: ?less than 200 mg/dL Borderline High Cholesterol: ??200-239 mg/dL High Cholesterol: ? greater than 239 mg/dL HDL Cholesterol 53 mg/dL [facility] Comment: Desirable HDL: ??greater than 40 mg/dL ?? Note: This HDL assay may give artificially ? low results in patients with liver disease. LDL Cholesterol Calculated 143 mg/dl [facility] Comment: Desirable LDL: ? less than 100 mg/dL Near Optimal/Above Optimal LDL: ??110-129 mg/dL Borderline High LDL: ? 130-159 mg/dL High LDL: ?160-189 mg/dL Very High LDL: ? greater than or equal to ?190 mg/dL Triglycerides 130 mg/dL [facility] Comment: Desirable Triglyceride: ? less than 150 mg/dL Borderline High Triglyceride ??150-199 mg/dL High Triglyceride: ?200-499 mg/dL Very High Triglyceride: ? greater than or equal to ? 5OO mg/dL Vitamin D 25-OH Total 20.0 >30 ng/mL [facility] Comment: Health Based Reference Values* [...] Stimulating Hormone 1.04 0.32 - 4.0 uIU/mL [facility] Comment:TSH 3rd Generation ( [facility]) Alanine Aminotransferase 49(H) 0 - 31 U/L [facility] Albumin Level 4.4 3.5 - 5.0 g/dL [facility] Alkaline Phosphatase 96 39 - 117 U/L [facility] Anion Gap 15 12 - 20 [facility] Aspartate Amino Transferase 20 5 - 31 U/L [facility] Bilirubin Total 0.4 0.0 - 1.0 mg/dL [facility] Blood Urea Nitrogen 12 9 - 16 mg/dL [facility] Calcium 9.5 8.4 - 10.2 mg/dL [facility] Carbon Dioxide 26 22 - 29 mmol/L [facility] Chloride 106 96 - 108 mmol/L [facility] Creatinine, Serum 0.82 0.5 - 1.4 mg/dL [facility] Estimated Glomerular Filt Rate >60 [facility] Comment: NOTE: ??For -[place] individuals, multiply the result ?by 1.210. ?? Chronic Kidney Disease: ??Estimated GFR < [...] Bowers MD HISTORICAL/NON ORDERABLE LABS Final Result [facility] [address] from Last 3 Months or Most Recently Relevant to Health Maintenance Insurance C3 Care Teams Stapler Coil Unit Relationship Specialty Start Date End Date Silvia Bowers MD [address] [place] [id number] PCP - General Family Medicine 08/15/21
[2024-08-22 14:06] LABS: MANUAL DIFF FLAG NO
[2024-08-22 14:14] LABS: Basophils Absolute Auto 0.1 X10*3/uL (0.0-0.2); Basophils Percent Auto 0.8 % (0-2); Eosinophils Absolute Auto 0.4 X10*3/uL (0.0-0.4); Eosinophils Percent Auto 4.5 % (0-4); Hematocrit 47.2 % (37.0-47.0); Hemoglobin 15.8 g/dl (12.0-16.0); Imm Gran Abs Auto 0.04 X10*3/uL (0.00-0.03); Imm Gran Pct Auto 0.5 % (0.0-0.4); Lymphocytes Absolute Auto 2.7 X10*3/uL (1.2-4.9); Lymphocytes Percent Auto 32.8 % (20-40); Mean Corpuscular HGB Conc 33.5 g/dl (31.0-35.0); Mean Corpuscular Hemoglobin 29.4 pg (27.0-33.0); Mean Corpuscular Volume 87.7 fL (80.0-98.0); Mean Platelet Volume 9.7 fL (9.4-12.3); Monocytes Absolute Auto 0.9 X10*3/uL (0.1-1.2); Monocytes Percent Auto 10.5 % (2-11); Neutrophils Absolute Auto 4.2 x10*3/uL (2.0-8.3); Neutrophils Percent Auto 50.9 % (45-73); Platelet Count 310 X10*3/uL (160-400); Red Blood Count 5.38 X10*6/uL (4.20-5.50); Red Cell Distribution Width 14.1 % (11.0-16.0); White Blood Count 8.3 X10*3/uL (4.8-10.8)
[2024-08-22 14:38] LABS: Iron 68 mcg/dL (30-160); Magnesium 2.1 mg/dL (1.6-2.6); Percent Iron Saturation 25 % (15-50); Total Iron Binding Capacity 273 mcg/dL (228-428); Unsaturated Iron Binding 205 ug/dL
[2024-08-22 14:45] LABS: Vitamin D 25-OH Total 39.7 ng/mL (>30)
[2024-08-22 14:59] LABS: Folate 11.6 ng/mL (> or = 4.0)
[2024-08-22 15:30] LABS: Vitamin B12 832 pg/mL (200-900)
== END 2024-08-22 11:51 | disposition home or self-care (01) ==
LOC: HO.CHCLDS 11:50
PROVIDERS: Visit Provider Family Medicine
DX: E66.812 Obesity, class 2 (principal); Z68.36 Body mass index [BMI] 36.0-36.9, adult
CPT/HCPCS: 36415; 82306; 82607; 82746; 83540; 83735; 85025

== ENCOUNTER 2024-12-23 09:36 | Outpatient (REF) | payer MEDICAID, SELFPAY ==
--- OUTSIDE RECORDS SUMMARY | 2024-12-22 10:15 | XMS_ITS | Encounter Summary ---
Author Organization [employer] Address [address] [place] [address] [address] [place] [address] Care Team Providers Care Hat Ironer Name Role Phone Silvia Bowers MD Primary Care Provider [phone] Reason for Referral * Consultation (Routine) - Pending Review Specialty Diagnoses / Procedures Referred By Neymar layton Referred To Contact Gastroenterology Diagnoses Encounter for screening for malignant neoplasm of colon Mandi Pena MD [address] [place] [address] Phone: tel: fax: Referral ID Status Reason Start Date Expiration Date Visits Requested Visits Authorized [id number] Pending Review Specialty Services Required 12/22/2025 1 1 * Consultation (Routine) - Authorized Specialty Diagnoses / Procedures Referred By Neymar layton Referred To Contact Nutrition Diagnoses Class 2 obesity due to excess calories without serious comorbidity with body mass index (BMI) of 36.0 to 36.9 in adult Mandi Pena MD [address] [place] [address] Phone: tel: fax: Referral ID Status Reason Start Date Expiration Date Visits Requested Visits Authorized [id number] Authorized Consult and Treat 12/22/2024 12/22/2025 1 1 Reason for Visit * Reason Comments Annual Exam Encounter Details Date Type Department Care Team ([facility] Contact Info) Description 12/22/2024 10:15 AM EDT Office Visit [facility] [address] [place] [address] Mandi Pena MD [address] [place] [address] Obstructive sleep apnea syndrome (Primary Dx); Class 2 obesity due to excess calories without serious comorbidity with body mass index (BMI) of 36.0 to 36.9 in adult; Tachycardia; Encounter for annual wellness visit; Tobacco abuse; Encounter for screening for malignant neoplasm of colon; Screening-pulmonary TB Social History Tobacco Use Types Packs/Day Years [...] Answer Date Recorded Patient Health Questionnaire-9 Score 3 12/22/2024 Patient Health Questionnaire-9 Score 3 12/22/2024 Last PHQ-9: Questionnaire Data Not on file 1 Housing Stability Answer Date Recorded What is [...] Date Recorded Patient Health Questionnaire-2 Score 1 12/22/2024 Internet Access Answer Date Recorded Internet Access Q1 Yes 07/13/2024 Internet Access Q2 Not on file 07/13/2024 Comments No Sex and Gender Information Value Date Recorded Sex Assigned at Female 01/06/2022 10:40 AM EDT Legal Sex Female 10:40 AM EDT Gender Identity Female 01/06/2022 10:40 AM EDT Sexual Orientation Straight 12/22/2024 4: 02 PM EDT documented as of this encounter Last Filed Vital Signs Vital Sign Reading Time Taken Comments Blood Pressure 139/79 12/22/2024 10:06 AM EDT Pulse 87 12/22/2024 10:06 AM EDT Temperature 36.4 C (97.5 F) 12/22/2024 10:06 AM EDT Respiratory Rate 18 12/22/2024 10:06 AM EDT Oxygen Saturation 97% 12/22/2024 10:06 AM EDT Inhaled Oxygen Concentration - - Weight 90.7 kg (200 lb) 12/22/2024 10:06 AM EDT Height 151.1 cm (4' 11.5 ) 12/22/2024 10:06 AM E DT Body Mass Index 39.72 12/22/2024 10:06 AM EDT documented in this encounter Functional Status * Over the past 2 weeks, how often have you been bothered by any of the following problems? Question Answer Date of Assessment Author Patient Health Questionnaire -2 Score 1 12/22/2024 10:07 AM Noelle Barrera MA * Little interest or pleasure in doing things Answer Date of Assessment Author Several days 12/22/2024 10:07 AM Janine Barrera MA * Feeling down, depressed, or hopeless Answer Date of Assessment Author Not at all 12/22/2024 10:07 AM Janine Barrera MA * Trouble falling or staying asleep, or sleeping too much Answer Date of Assessment Author Not at all 12/22/2024 10:07 AM Janine Barrera MA * Feeling tired or having little energy Answer Date of Assessment Author Not at all 12/22/2024 10:07 AM Janine Barrera MA * Poor appetite or overeating Answer Date of Assessment Author Several days 12/22/2024 10:07 AM Janine Barrera MA * Feeling bad about yourself - or that you are a failure or have let yourself or your family down Answer Date of Assessment Author Not at all 12/22/2024 10:07 AM Janine Barrera MA * Trouble concentrating on things, such as reading the newspaper or watching television Answer Date of Assessment Author Several days 12/22/2024 10:07 AM Janine Barrera MA * Moving or speaking so slowly that other people could have noticed? Or the opposite - being so fidgety or restless that you have been moving around a lot more than usual. Answer Date of Assessment Author Not at all 12/22/2024 10:07 AM Janine Barrera MA * Thoughts that you would be better off or hurting yourself in some way Answer Date of Assessment Author Not at all 12/22/2024 10:07 AM Janine Barrera MA * Patient Health Questionnaire-9 Score Answer Date of Assessment Author 3 12/22/2024 10:07 AM Janine aBrrera MA * How difficult have these problems made it for you to do your work, take care of things at home, or get along with other people? Answer Date of Assessment Author Not difficult at all 12/22/2024 10:07 AM Noelle Vital MA documented as of this encounter Progress Notes * Mnadi Pena MD - 12/22/2024 10:15 AM EDT Subjective Patient ID: Silvia Sharma is a 54 y.o. female who presents for Annual Exam. Well Adult Physical Patient here for a comprehensive physical exam. Review of Systems Constitutional: Negative. Respiratory: Negative. Negative for shortness of breath. Cardiovascular: Negative for chest pain and palpitations. Gastrointestinal: Negative. Genitourinary: Negative. Musculoskeletal: Negative for neck pain. Neurological: Negative for headaches. Objective Physical Exam Constitutional: Appearance: Normal appearance. HENT: Head: Normocephalic and atraumatic. Right Ear: Tympanic membrane normal. Left Ear: Tympanic membrane normal. Mouth/Throat: Mouth: Mucous membranes are moist. Eyes: Pupils: Pupils are equal, round, and reactive to light. Cardiovascular: Rate and Rhythm: Normal rate and regular rhythm. Pulmonary: Effort: Pulmonary effort is normal. Breath sounds: Normal breath sounds. Abdominal: General: Abdomen is flat. Palpations: Abdomen is soft. Musculoskeletal: General: Normal range of motion. Skin: General: Skin is warm. Neurological: General: No focal deficit present. Mental Status: She is alert. Psychiatric: Mood and Affect: Mood normal. Behavior: Behavior normal. Assessment/Plan Diagnoses and all orders for this visit: Obstructive sleep apnea syndrome Comments: Pt advised to be compliant with CPAP machine Advised to maintain a low-fat, low-cholesterol diet. Counseled regarding importance of weight loss. Class 2 obesity due to excess calories without serious comorbidity with body mass index (BMI) of 36.0 to 36.9 in adult Advised to maintain a low-fat, low-cholesterol diet. Counseled regarding importance of weight loss. Counseled re: potential co-morbidities including cardiovascular disease. Maintain a low-sodium diet (less than 2 grams per day). Maintain a regular cardiovascular exercise program. - Referral to Nutrition Therapy; Future - Basic Metabolic Panel; Future - Lipid Panel, Standard; Future - Hepatic Function Panel; Future Tachycardia Comments: Stable on Metoprolol as needed Encounter for annual wellness visit Tobacco abuse Encounter for screening for malignant neoplasm of colon - Referral to Gastroenterology; Future Screening-pulmonary TB - T-SPOT??.TB; Future Other orders - triamcinolone (Kenalog) 0.1 % cream; Apply topically if needed in the morning and at bedtime (pain and swelling). documented in this encounter Plan of Treatment Scheduled Orders Name Type Priority Associated Diagnoses Orde r Schedule T-SPOT .TB Lab Routine Screening-pulmonary TB Expected: 12/22/2024 (Approximate), Expires: 12/22/2025 Basic Metabolic Panel Lab Routine Class 2 obesity due to excess calories without serious comorbidity with body mass index (BMI) of 36.0 to 36.9 in adult Expected: 12/22/2024 (Approximate), Expires: 12/22/2025 Lipid Panel, Standard Lab Routine Class 2 obesity due to excess calories without serious comorbidity with body mass index (BMI) of 36.0 to 36.9 in adult Expected: 12/22/2024 (Approximate), Expires: 12/22/2025 Hepatic Function Panel Lab Routine Class 2 obesity due to excess calories without serious comorbidity with body mass index (BMI) of 36.0 to 36.9 in adult Expected: 12/22/2024 (Approximate), Expires: 12/22/2025 Scheduled Referrals Name Type Priority Associated Diagnoses Order Schedule Referral to Nutrition Therapy Outpatient Referral Routine Class 2 obesity due to excess calories without serious comorbidity with body mass index (BMI) of 36.0 to 36.9 in adult Expected: 12/22/2024 (Approximate), Expires: 12/22/2025 Referral to Gastroenterology Outpatient Referral Routine Encounter for screening for malignant neoplasm of colon Expected: 12/22/2024 (Approximate), Expires: 12/22/2025 documented as of this encounter Visit Diagnoses Diagnosis Obstructive sleep apnea syndrome- Primary Obstructive sleep apnea (adult) (pediatric) Class 2 obesity due to excess calories without serious comorbidity with body mass index (BMI) of 36.0 to 36.9 in adult Tachycardia Unspecified tachycardia Encounter for annual wellness visit Tobacco abuse Tobacco use disorder Encounter for screening for malignant neoplasm of colon Screening-pulmonary TB Screening examination for pulmonary tuberculosis documented in this encounter Additional Health Concerns Assessment Noted Time PHQ-9 Depression Total Score: 3 12/23/19 25 10:07 AM EDT documented as of this encounter Care Teams Hat Ironer Relationship Specialty Start Date End Date Silvia Bowers MD [address] [place] [id number] PCP - General Family Medicine 08/15/21 documented as of this encounter
--- OUTSIDE RECORDS SUMMARY | 2024-12-23 10:56 | XMS_ITS | Clinical Summary ---
Author Organization [employer] Address [address] [facility] 7t [place] [address] Care Team Providers Care Supervisor Customer Complaint Service Name Role Phone Silvia Bowers MD Primary Care Provider [phone] Allergies Active Allergy Reactions Criticality Noted Date Comments Amoxicillin 02/26/2023 Ibuprofen Nausea And Vomiting 08/08/2008 Medications * This document contains information received from the source organization and may not represent a complete record from that organization. metoprolol succinate XL (Toprol-XL) 50 MG 24 hr tablet TAKE 1 TAB (50 MG) ORALLY DAILY NEED FOLLOW-UP APPT 4 Active triamcinolone (Kenalog) 0.1 % cream Apply topically if needed in the morning and at bedtime (pain and swelling). 30 g 2 5 Active Active Problems Problem Noted Date Diagnosed Date Class 2 obesity with body ma ss index (BMI) of 36.0 to 36.9 in adult 08/22/2024 Assessment & Plan (08/22/2024 2:04 PM EDT): Patient reports stopping injectable weight loss medication (presumed to be Wegovy) in February due to concerns about loose skin, sunken facial appearance, and overall dissatisfaction with the results. Since discontinuation, patient has gained 10 pounds and is now focusing on building muscle mass. There are concerns about potential vitamin deficiencies related to the previous use of the injectable medication. Plan: - Order laboratory tests to check for vitamin deficiencies: - Vitamin D level - Vitamin B12 level - Iron studies - Discuss results and potential supplementation at follow-up appointment - Patient is currently taking a supplement called Tovitalize, which contains prebiotics, probiotics, turmeric, moringa, and other ingredients - Advised on the importance of choosing supplements with SNF certification Vaginal cysts 08/22/2024 Assessment & Plan (08/22/2024 2:03 PM EDT): Patient reports pelvic pain and the presence of cysts on the vaginal lips. Upon examination, it was determined that the cysts are not Bartholin's cysts, as they are located on the upper part of the vaginal lips rather than posteriorly. The cysts are described as having induration, but the patient reports no pain. Given the location and characteristics, these may be Alessandra's cysts, but a definitive diagnosis requires further evaluation by a lead electrician. The cysts are not infected, so antibiotics are not indicated at this time. Plan: - Refer to lead electrician for further evaluation and potential removal of the cysts - Patient education provided on home management: - Apply warm compresses to the affected area - Sitz baths with Epsom salt - No antibiotics prescribed at this time due to lack of infection Obstructive sleep apnea syndrome 08/22/2024 Assessment & Plan (08/22/2024 2:05 PM EDT): Patient reports discontinuing use of CPAP machine following oral infection. She notes improved sleep quality without the machine but acknowledges the return of snoring. There are concerns about potential loss of the machine or financial responsibility if not used. Plan: - Advise patient to resume use of CPAP machine - Instruct patient to bring all relevant documentation from the equipment provider to next appointment for review - Educate on the importance of treating sleep apnea for overall health, including weight management and prevention of pulmonary hypertension - Schedule follow-up appointment to reassess sleep apnea management and CPAP compliance Cervical cancer screening 12/01/2023 Assessment & Plan [...] intervention , Patient to reach out to [facility] team as needed, and Patient to engage in OP therapy Rule Out Diagnoses- Generalized Anxiety Disorder Behavioral Health Diagnoses At this time Silvia meets criteria for Visit Diagnoses: Problem List Items Addressed This Visit Other Adjustment disorder with anxious mood Tobacco abuse 12/11/2011 Rosacea 06/10/2005 Resolved Problems Problem Noted Date Diagnosed Date Resolved Date Class 1 obesity due to exces s calories with serious comorbidity and body mass index (BMI) of 34.0 to 34.9 in adult 06/17/2012 08/22/2024 Assessment & Plan (02/22/2024 11:18 AM EST): Starting weight 206 lbs Current weight 175 lbs Total weight loss 31 lbs , 15%. Pt responding well to current dose, advised to begin muscle training with cardio. Pt will continue to follow up with nurse at [facility] to manage medication. Pt declined TDAP, PCV-20, Influenza, Covid, and Zoster today. Assessment & Plan (10/21/2023 11:26 AM EDT): Referral to Breastfeeding Educator for further assistance with weight loss. Encounters Date Type Department Care Team Description 12/22/2024 10:15 AM EDT Office Visit [facility] [address] [place] [address] Mandi Pena MD Obstructive sleep apnea syndrome (Primary Dx); Class 2 obesity due to excess calories without serious comorbidity with body mass index (BMI) of 36.0 to 36.9 in adult; Tachycardia; Encounter for annual wellness visit; Tobacco abuse; Encounter for screening for malignant neoplasm of colon; Screening-pulmonary TB 12/22/2024 Travel 12/21/2024 Telephone [facility] [address] [place] [address] Silvia Bowers MD Chart Prep 12/14/2024 Patient Outreach [facility] [address] [place] [address] Silvia Bowers MD Pre-visit Planning ([facility] screening completed on 07/13/24) 12/14/2024 Telephone [facility] [address] [place] [address] Silvia Bowers MD 10/11/2024 Telephone [facility] [address] [place] [address] Silvia Bowers MD cologuard from Last 3 Months Immunizations Immunization Administration [...] is your housing situation today? I have trishaalexandra esqueda 07/13/[address] you [...] the past 12 months, has t he [employer], gas, oil or water [employer] threatened to shut off services in your [...] Orientation Straight 12/22/2024 4: 02 PM EDT Last Filed Vital Signs Vital Sign [...] Mass Index 39.72 12/22/2024 10:06 AM EDT Plan of Treatment Health Maintenance Due Date Last Done Comments CT Colonography 1969 Colonoscopy 1969 Colorectal Cancer Screening 1969 FIT DNA/Cologuard 1969 FIT 1969 FOBT 1969 Sigmoidoscopy 1969 Hepatitis B Vaccines (1 of 3 - 19+ 3-dose series) 1988 Pneumococcal Vaccine: 50+ Years (1 of 2 - PCV) 1988 DTaP/Tdap/Td Vaccines (3 - Td or Tdap) 02/21/2025 06/17/2012, 10/21/2000 Postponed from 06/17/2022 (Patient Refused) Zoster Vaccines (1 of 2) 02/21/2025 Pos tponed from 09/19/2019 (Patient Refused) SDOH Screening 07/13/2025 07/13/2024 Influenza Vaccine (#1) 2025 Postp oned from 11/07/2024 (Patient Refused) Alcohol/Substance Use Screening 12/22/2025 12/22/2024 COVID-19 Vaccine ( season) 2025 Postponed from 11/07/2024 (Patient Refused) Depression Screening 12/22/2025 12/22/2024, 12/23/19 Disability Screening 12/22/2025 12/22/2024 Tobacco Screening 12/22/2025 12/22/2024 Mammogram 06/10/2026 06/10/2024, 05/07, 07/03/2021, Additional history exists Lipid Panel 08/31/2026 [...] MRNA E6/E7 Routine 12/01/2023 9:30 AM EDT ZZZ HISTORICAL HEPATITIS C ANTIBODY RFLX Routine 08/31/2021 8:53 AM EDT JOE HISTORICAL HIV AB/AG Routine 08/31/2021 8:53 AM EDT ZZ HISTORICAL LIPID PANEL Routine 08/31/2021 8:53 AM EDT from Last 3 Months or Most Recently Relevant to Health Maintenance Results * BI Mammogram Screening Tomosynthesis Bilateral (06/10/2024 3:45 PM EDT) Anatomical Region Laterality Modality Breast Bilateral Mammography 06/10/2024 3:45 PM EDT Narrative 06/17/2024 5:12 PM EDT [facility] [address] [place] [address] Mammography Report Signed Patient: Silvia Sharma MR#: [id number] : 1970 Acct:[id number] Age/Sex: 53 / F ADM Date: 06/10/24 Loc: .MAMMO Attending Dr: Silvia Bowers MD Ordering Physician: Silvia Bowers MD Results: 1Nega tive Date of Service: 06/10/24 Follow Up: 1 Year From Orig inal Mammogram Procedure(s): MM tomosynthesis screening BI Accession Number(s): [id number] cc: Silvia Bowers MD EXAMINATION: MM SCREENING [...] 06/17/24 1709 DD/ 1545 TD/TT: 06/10/24 1603 Federal Appellate Clerk: Procedure Note Donotuseinterpreter, Image - 06/17/2024 [facility] [address] [place] [address] Mammography Report Signed Patient: Silvia SharmaMR#: [id number] : 1970Acct:[id number] Age/Sex: 53 / FADM Date: 06/10/24 Loc: HO.MAMMO Attending Dr: Silvia Bowers MD Ordering Physician: Silvia Bowers MDResults: 1Nega tive Date of Service: 06/10/24Follow Up: 1 Year From Orig inal Mammogram Procedure(s): MM tomosynthesis screening BI Accession Number(s): [id number] cc: Silvia Bowers MD EXAMINATION: MM SCREENING [...] 06/17/24 1709 DD/ 1545 TD/TT: 06/10/24 1603 Federal Appellate Clerk: Silvia Bowers MD IMG BI PROCEDURES Final Resul t * ThinPrep Imaging Pap and HPV mRNA E6/E7 (12/01/2023 9:30 AM EDT) HPV nRNA E6/E7 Not Detected Not Detected [facility] Comment:Methodology: Transcr iption-Mediated AmplificationThis assay detects E6/E7 viral messenger RNA (mRNA) from 14high-risk HPV types (16,18,31,33,35,39,45,51,52,56,58,59,66,68).Cervical sources are required for HPV testing.If a vaginal source from a patient who has had atotal hysterectomy with removal of cervix wassubmitted, please contact the testing laboratoryfor alternative testing options.For additional information, please refer tohttp://education.7billionideas/faq/JSW449s2(This link if provided for information/educational purposes only.)THIS TEST WAS PERFORMED AT:[facility] [place] [phone] WEEKS MD SOURCE: SEE NOTE [facility] Comment:None given Report Status: TNP [facility] Clinical Information: SEE NOTE [facility] Comment:None given LMP: SEE NOTE [facility] Comment:NONE GIVEN Prev. PAP: SEE NOTE [facility] Comment:NONE GIVEN Prev. BX: SEE NOTE [facility] Comment:NONE GIVEN Statement Of Adequacy: SEE NOTE [facility] Comment:Satisfactory for noe luation.Endocervical/transformation zone componentpresent. General Categorization: TNP [facility] Interpretation/Result: SEE NOTE [facility] Comment:Cytology Results: Ne gative for intraepitheliallesion or malignancy. Cytology Comment SEE NOTE [facility] Comment:This Pap test has be en evaluated with computerassisted technology. Costume Shop Coordinator: SEE NOTE [facility] Comment:DCR, CT(ASCP)CT scre ening location: [address] [address] Review Costume Shop Coordinator: SEE NOTE [facility] Comment:MXD, CT (ASCP)CT scr eening location: [address] [address] Pathologist TNP [facility] PAP Infection TNP [facility] See Note SEE NOTE [facility] Comment:EXPLANATORY NOTE:The Pap is a screening test for cervical cancer. It isnot a diagnostic test and is subject to false negativeand false positive results. It is most reliable when asatisfactory sample, regularly obtained, is submittedwith relevant clinical findings and history, and whenthe Pap result is evaluated along with historic andcurrent clinical information. 12/01/2023 9:30 AM EDT 12/01/2023 2:51 PM EDT Narrative [facility] - 12/07/2023 2:27 PM EDT SEE SCANNED RESULTS IN EMR us Silvia Bowers MD LAB PATHOLOGY ORDERABLES Dee l Result Performing Organization Address City/[facility]/ZIP Co de Phone Number [facility] [address] [place] [address] [phone] * HEPATITIS C ANTIBODY RFLX (08/31/2021 8:53 AM EDT) Hepatitis C Antibody Nonreactive Nonreactive [facility] Comment: Antibodies to HCV not detected; does not exclude early acute HCV infection. 08/31/2021 8:53 AM EDT us Silvia Bowers MD HISTORICAL/NON ORDERABLE LABS Final Result Performing Organization Address City/[facility]/ZIP Co de Phone Number [facility] [address] * HIV AB/AG (08/31/2021 8:53 AM EDT) HIV AB/AG Nonreactive Nonreactive [facility] Comment: HIV-1 p24 Ag and/or HIV-1/HIV-2 Ab not detected. A test result that is nonreactive does not exclude the possibility of exposure to or infection with HIV-1 and/or HIV-2. Nonreactive results in this assay for individuals with prior exposure to HIV-1 and/or HIV-2 may be due to antigen and antibody levels that are below the limit of detection of this assay. The [employer] HIV Ag/Ab Combo assay result and supplemental assay results should be interpreted in conjunction with the patient's clinical presentation, history and other laboratory results. If the results are inconsistent with clinical evidence, additional testing is suggested to confirm the result. Hepatitis B Surface Antibody NONREACTIVE Nonreactive [facility] Comment:Nonreactive: < 8.00 mIU/mL Hepatitis B Surface Antigen Negative Negative [facility] 08/31/2021 8:53 AM EDT us Silvia Bowers MD HISTORICAL/NON ORDERABLE LABS Final Result [facility] [address] * (ABNORMAL) LIPID PANEL (08/31/2021 8:53 AM EDT) Cholesterol 222 mg/dL [facility] Comment: Desirable Cholesterol: less than 200 mg/dL Borderline High Cholesterol: 200-239 mg/dL High Cholesterol: greater than 239 mg/dL HDL Cholesterol 53 mg/dL [facility] Comment: Desirable HDL: greater than 40 mg/dL Note: This HDL assay may give artificially low results in patients with liver disease. LDL Cholesterol Calculated 143 mg/dl [facility] Comment: Desirable LDL: less than 100 mg/dL Near Optimal/Above Optimal LDL: 110-129 mg/dL Borderline High LDL: 130-159 mg/dL High LDL: 160-189 mg/dL Very High LDL: greater than or equal to 190 mg/dL Triglycerides 130 mg/dL [facility] Comment: Desirable Triglyceride: less than 150 mg/dL Borderline High Triglyceride 150-199 mg/dL High Triglyceride: 200-499 mg/dL Very High Triglyceride: greater than or equal to 5OO mg/dL Vitamin D 25-OH Total 20.0 >30 ng/mL [facility] Comment: Health Based Reference Values* < 20 ng/mL Deficient 20-30 ng/mL Insufficient > 30 ng/mL Sufficient *Gary MAGALLON. N Engl J Med. 2007;357:266-280 Care must be taken in interpreting Vitamin D results from different laboratories and methodologies. Published data demonstrated that results from patients undergoing hemodialysis may show a negative bias when tested with various automated 25-OH vitamin D assays when compared to LC-MS/MS. When testing samples from patients whose predominant [...] Rate >60 [facility] Comment: NOTE: For -Sammarinese individuals, multiply the result by 1.210. Chronic Kidney Disease: Estimated GFR < 60 mL/min/1.73m2 Severe Kidney Disease: Estimated GFR < 15 mL/min/1.73m2 Glucose Random 96 60 - 115 mg/dL [facility] Potassium 4.9 3.3 - 5.1 mmol/L [facility] Comment:Sample slightly hemo lyzed Sodium 142 135 - 145 mmol/L [facility] Total Protein 7.0 6.5 - 8.0 g/dL [facility] 08/31/2021 8:53 AM EDT us Silvia Bowers MD HISTORICAL/NON ORDERABLE LABS Final Result [facility] [address] from Last 3 Months or Most Recently Relevant to Health Maintenance Insurance [facility] C3 Care Teams Supervisor Customer Complaint Service Relationship Specialty Start Date End Date Silvia Bowers MD [address] [place] [phone] PCP - General Family Medicine 08/15/21
--- OUTSIDE RECORDS SUMMARY | 2024-12-23 10:56 | XMS_ITS | Encounter Summary ---
Author Organization [employer] Address [address] [place] [address] Care Team Providers Care Water Registrar Name Role Phone Silvia Bowers MD Primary Care Provider [phone] Encounter Details Date Type Department Care Team (Latest Contact Info) Description 12/22/2024 Travel Social History Tobacco Use Types Packs/Day Years Used Date Smoking Tobacco: Every Day Cigarettes 0.5 20 Passive Smoke Exposure: Never Smokeless Tobacco: Former Comments:Stopped smoking x 1 0 years and resumed smoking about 13 years [...] the past 12 months, has t he [email or web address], oil or water [employer] threatened to shut off services in your [...] PM EDT documented as of this encounter Functional Status * Over the [...] Author Not at all 12/22/2024 10:07 AM [place] Janine Slater MA * Thoughts that you would be better off or hurting yourself in some way Answer Date of Assessment Author Not at all 12/22/2024 10:07 AM Janine Barrera MA * Patient Health Questionnaire-9 Score Answer Date of Assessment Author 3 12/22/2024 10:07 AM [place] Janine Slater MA * How difficult have these problems made it for you to do your work, take care of things at home, or get along with other people? Answer Date of Assessment Author Not difficult at all 12/22/2024 10:07 AM EDT Noelle Lassiter MA documented as of this encounter Plan of Treatment Not on file documented as of this encounter Visit Diagnoses Not on filedocumented in this encounter Additional Health Concerns Assessment Noted Time PHQ-9 Depression Total Score: 3 12/23/19 25 10:07 AM EDT documented as of this encounter Care Teams Water Registrar Relationship Specialty Start Date End Date Silvia Bowers MD [address] [place] [address] PCP - General Family Medicine 08/15/21 documented as of this encounter
--- OUTSIDE RECORDS SUMMARY | 2024-12-23 10:56 | XMS_ITS | Encounter Summary ---
Author Organization [employer] Address [address] [place] [address] Care Team Providers Care Sulphate Tester Name Role Phone Silvia Bowers MD Primary Care Provider Reason for Visit * Reason Onset Date Comments Chart Prep 12/21/2024 Encounter Details Date Type Department Care Team ([facility] Contact Info) Description 12/21/2024 Telephone [facility] [address] [place] [address] Silvia Bowers MD [address] [place] [address] Chart Prep Social History Tobacco Use Types Packs/Day Years [...] your housing situation today? I have trisha dheeraj 07/13/[address] you li [...] PM EDT documented as of this encounter Miscellaneous Notes * Telephone Encounter - Shari Elizabeth MA - 12/21/2024 9:47 AM EDT Chart Prep Labs: done Images: done Referrals: appointment pending Vaccines due: Covid, Flu, PCV20, and Hep B Screenings: colonoscopy and LMP Overdue care gaps: SBIRT, PHQ-9, Disability screen, and Tobacco documented in this encounter Plan of Treatment Not on file documented as of this encounter Visit Diagnoses Not on filedocumented in this encounter Additional Health Concerns Assessment Noted Time PHQ-9 Depression Total Score: 1 05/04/19 24 9:07 AM EST documented as of this encounter Care Teams Sulphate Tester Relationship Specialty Start Date End Date Silvia Bowers MD [address] [place] [address] PCP - General Family Medicine 08/15/21 documented as of this encounter
[2024-12-23 16:18] LABS: Alanine Aminotransferase 46 U/L (0-31); Albumin Level 4.5 g/dL (3.5-5.0); Anion Gap 15 (12-20); Aspartate Amino Transferase 30 U/L (5-31); Blood Urea Nitrogen 14 mg/dL (9-16); Calcium 9.4 mg/dL (8.4-10.2); Carbon Dioxide 27 mmol/L (22-29); Chloride 104 mmol/L (96-108); Cholesterol 224 mg/dL (<200); Estimated Glomerular Filt Rate > 60; HDL Cholesterol 54 mg/dL (>40); Potassium 4.7 mmol/L (3.3-5.1); Sodium 141 mmol/L (135-145); Total Protein 7.0 g/dL (6.5-8.0); Triglycerides 157 mg/dL (<150)
[2024-12-23 18:05] LABS: Alkaline Phosphatase 87 U/L (39-117)
[2024-12-26 10:28] LABS: TS Negative Control Passed; TS Panel A 2; TS Panel B 0; TS Positive Control Passed; TSpotTB Negative (Negative)
== END 2024-12-23 09:37 | disposition home or self-care (01) ==
LOC: HO.CHCLDS 09:36
PROVIDERS: Visit Provider Student in an Organized Health Care Education/Training Program
DX: Z11.1 Encounter for screening for respiratory tuberculosis (principal); E66.812 Obesity, class 2; Z68.36 Body mass index [BMI] 36.0-36.9, adult
CPT/HCPCS: 36415; 80048; 80061; 80076; 86481

== ENCOUNTER 2025-01-04 09:11 | Outpatient (AMB) | payer MEDICAID, SELFPAY ==
--- NOTE | 2025-01-04 09:15 | A.OFFVIS_ITS ---
Vital Signs 01/04/25 09:21 Height 4 ft 11 in Weight 206 lb BMI 41.6 Intake Visit Reasons: vag cyst School Community Relations Coordinator: School Community Relations Coordinator Present (Sonja) Accompanied by: Self / Same As Patient Allergies amoxicillin Allergy (Severe, Verified 01/04/25 09:19) Vomiting Is last menstrual period known: No Post menopausal: Yes Patient : No HPI Comments Details: Presenting complaining of perineal cyst nontender comes and goes no associated vaginal discharge or any other concerns Last Co testing many years ago Last mammogram in 07/01 was BI-RADS 1 The patient is in the process of scheduling her screening colonoscopy [facility] Medical History (Updated 01/04/25 @ 09:31 by Dru Davenport MD) delivery delivered Family History Father Heart attack Cancer of brain Social History Patient Tobacco Use Status: Former Tobacco user Female Reproductive History Menstrual control method: none Total pregnancies: 3 Full term: 3 History of abnormal pap smear: No Date of Mammogram: 06/10/24 (bi rad 1) Review of Systems Const All systems reviewed & are unremarkable except as noted in HPI and below Physical Exam General: Yes no CVA tenderness External Female Exam: No normal external appearance (Left labia majora sebaceous cyst) and normal appearance of the urethra Speculum Exam - Vagina: normal appearance of the vagina, normal palpation, no lesions and no masses Speculum Exam - Cervix: normal appearance of the cervix, normal palpation, no lesions, no masses and nontender Bimanual exam- vagina & uterus: normal bimanual exam, normal palpation, uterine size normal, normal palpation, uterine shape normal, No Cervical tenderness present and non-tender Bimanual Exam- Adnexa, other: normal adnexae Back/Spine/Pelvis Back: no CVA tenderness Assessment & Plan Assessment & Plan (1) Sebaceous cyst of labia: Comment: Left labia minora Code(s): N90.7 - Vulvar cyst Category: Medical Plan: Discussed with the patient the findings on pelvic exam left labia minora sebaceous cyst. Instructions given the patient to call if becomes tender larger or any other concerns, will proceed with I&D. Co testing done. Counseled the patient about the recommended dietary allowance of 1200 mg of Calcium & 600 IU of vitamin D. Instructions given the patient to schedule next screening Mammogram in 07/02 The patient is in the process of scheduling with GI for screening colonoscopy . The patient was instructed to perform monthly self-breast exams and schedule annual exam in a year. All questions answered and the patient verbalized understanding. Coding Level of Care Code New Pt Level 3 (85152) Diagnoses Sebaceous cyst of labia N90.7
[2025-01-04 09:21] VITALS: BMI 41.6
--- OUTSIDE RECORDS SUMMARY | 2025-01-04 10:28 | XMS_ITS | Encounter Summary ---
Author Organization [employer] Address [address] [place] [address] Care Team Providers Care Director Biostatistics Name Role Phone Silvia Bowers MD Primary Care Provider [phone] Encounter Details Date Type Department Care Team ([facility] st Contact Info) Description 12/26/2024 Results Follow-Up [facility] [address] [place], [place] [phone] Mandi Pena MD [address] [place] [address] Basic Metabolic Panel, Lipid Panel, Standard, Hepatic Function Panel Social History Tobacco Use Types Packs/Day Years [...] as of this encounter Miscellaneous Notes * Result Encounter Note - Mandi Pena MD - 12/26/2024 8:47 AM EDT Advised low fat diet and weight loss Elevated lipids and LFt documented in this encounter Plan of Treatment Not on file documented as of this encounter Visit Diagnoses Not on filedocumented in this encounter Additional Health Concerns Assessment Noted Time PHQ-9 Depression Total Score: 3 12/23/19 25 10:07 AM EDT documented as of this encounter Care Teams Director Biostatistics Relationship Specialty Start Date End Date Silvia Bowers MD [address] [place] [id number] PCP - General Family Medicine 08/15/21 documented as of this encounter
--- OUTSIDE RECORDS SUMMARY | 2025-01-04 10:28 | XMS_ITS | Clinical Summary ---
Author Organization [employer] Address [address] [facility] [address] [place] [address] Care Team Providers Care Emergency Technician Name Role Phone Silvia Bowers MD Primary Care Provider [phone] Allergies Active Allergy Reactions Criticality Noted Date [...] on the importance of choosing supplements with CORRECTION certification Vaginal cysts 08/22/2024 Assessment & Plan [...] definitive diagnosis requires further evaluation by a security coordinator. The cysts are not infected, so antibiotics are not indicated at this time. Plan: - Refer to security coordinator for further evaluation and potential removal of [...] intervention , Patient to reach out to [facility] team as needed, and Patient to [...] continue to follow up with nurse at [facility] to manage medication. Pt declined TDAP, PCV-20, Influenza, Covid, and Zoster today. Assessment & Plan (10/21/2023 11:26 AM EDT): Referral to [facility] for further assistance with weight loss. Encounters Date Type Department Care Team Description 12/27/2024 Telephone [facility] [address] [place] [address] Silvia Bowers MD call back requested 12/26/2024 Results Follow-Up [facility] [address] [place] [address] Mandi Pena MD Basic Metabolic Panel, Lipid Panel, Standard, Hepatic Function Panel 12/22/2024 10:15 AM EDT Office Visit [facility] [address] [place] [address] Mandi Pena MD Obstructive sleep apnea syndrome (Primary Dx); Class 2 obesity due to excess calories without serious comorbidity with body mass index (BMI) of 36.0 to 36.9 in adult; Tachycardia; Encounter for annual wellness visit; Tobacco abuse; Encounter for screening for malignant neoplasm of colon; Screening-pulmonary TB 12/22/2024 Travel 12/21/2024 Telephone [facility] [address] [place] [address] Silvia Bowers MD Chart Prep 12/14/2024 Patient Outreach [facility] [address] [place] [phone] Silvia Bowers MD Pre-visit Planning (SDMT screening completed on 07/13/24) 12/14/2024 Telephone [facility] [address] [place] [address] Silvia Bowers MD 10/11/[address] [address] Silvia Bowers MD cologuard from Last 3 [...] Tobacco Screening 12/22/2025 12/22/2024 Mammogram 06/10/2026 06/10/2024, 0308/2023, 07/03/2021, Additional history exists Cervical Cancer Screening 11/30/2028 HPV/Cotest 11/30/2028 12/01/2023 Pap Smear 11/30/2028 12/01/2023 Lipid Panel 12/23/2029 12/23/2024, 08/31/2021 RSV Patients and Patients Aged 60 years [...] Procedure Name Priority Date/Time Associated Diagnosis Comments HEPATIC FUNCTION PANEL Routine 9:38 AM EDT Class 2 obesity due to excess calories without serious comorbidity with body mass index (BMI) of 36.0 to 36.9 in adult LIPID PANEL, STANDARD Routine 12/23/2024 9:38 AM EDT Class 2 obesity due to excess calories without serious comorbidity with body mass index (BMI) of 36.0 to 36.9 in adult BASIC METABOLIC PANEL Routine 12/23/2024 9:38 AM EDT Class 2 obesity due to excess calories without serious comorbidity with body mass index (BMI) of 36.0 to 36.9 in adult T-SPOT(R).TB Routine 12/23/2024 9:38 AM EDT Screening-pulmonary TB BI MAMMOGRAM SCREENING TOMOSYNTHESIS BILATERAL Routine 06/10/2024 3:45 PM EDT THINPREP IMAGING PAP AND HPV MRNA E6/E7 Routine 12/01/2023 9:30 AM EDT [facility]ZZ HISTORICAL HEPATITIS C ANTIBODY RFLX Routine 08/31/2021 8:53 AM EDT [facility] HISTORICAL HIV AB/AG Routine 08/31/2021 8:53 AM EDT from Last 3 Months or Most Recently Relevant to Health Maintenance Results * T-SPOT??.TB (12/23/2024 9:38 AM EDT) [facility] T Spot TB Negative Negative [facility] Comment:A negative test resu lt does not exclude the possibilityof exposure to or infection with Mycobacteriumtuberculosis (M. tuberculosis). Patients with recentexposure to TB infected individuals exhibiting anegative T-SPOT.TB result should be considered forretesting within 6 weeks or if other relevant clinicalsymptoms indicate. Results from T-SPOT.TB testing mustbe used in conjunction with each individual'sepidemiological history, current medical status,and results of other diagnostic evaluations.The T-SPOT.TB test is qualitative and results arereported as positive, borderline, or negative, giventhat the test controls perform as expected. In linewith the Centers for Disease Control and Prevention's2010 recommendation to report quantitative measurementsalongside the qualitative result, the laboratoryprovides spot counts for informational purposes only.The T-SPOT.TB test should not be interpreted as aquantitative test. TS PANEL A 2 [facility] TS PANEL B 0 [facility] Negative Control Passed [facility] Positive Control Passed [facility] Comment:For additional infor mation, please refer tohttp://education.[employer]/faq/WHQ204(This link is being provided for informational/educational purposes only.)THIS TEST WAS PERFORMED AT:[employer] [id number] [place] [address]QGBHRODHAO LI MD,PHD 12/23/2024 9:38 AM EDT 12/23/2024 2:38 PM EDT us Mandi Pena MD LAB BLOOD ORDERABLES Final Resul t [facility] [address] [place] [phone] * (ABNORMAL) Hepatic Function Panel (12/23/2024 9:38 AM EDT) Bilirubin, Total 0.3 0.0 - 1.0 mg/dL [facility] Bilirubin, Direct 0.2 0.0 - 0.5 mg/dL [facility] Aspartate Amino Transferase 30 5 - 31 U/L [facility] Alanine Aminotransferase 46(H) 0 - 31 U/L [facility] Total Protein 7.0 6.5 - 8.0 g/dL [facility] Albumin Level 4.5 3.5 - 5.0 g/dL [facility] Alkaline Phosphatase 87 39 - 117 U/L [facility] Blood Venous blood specimen / Unknown 12/23/2024 9:38 AM EDT 12/23/2024 2:38 PM EDT us Mandi Pena MD LAB BLOOD ORDERABLES Final Resul t Performing Organization Address City/[facility]/ZIP Co de Phone Number [facility] [address] [place] [address] [phone] * (ABNORMAL) Lipid Panel, Standard (12/23/2024 9:38 AM EDT) Triglycerides 157(H) <150 mg/dL [facility] Comment:Slight Lipemia.Vick able Triglyceride: less than 150 mg/dLBorderline High Triglyceride 150-199 mg/dLHigh Triglyceride: 200-499 mg/dLVery High Triglyceride: greater than or equal to 5OO mg/dL Cholesterol 224(H) <200 mg/dL [facility] Comment:Desirable Cholestero l: less than 200 mg/dLBorderline High Cholesterol: 200-239 mg/dLHigh Cholesterol: greater than 239 mg/dL LDL Cholesterol Calculated 139(H) <100 mg/dL [facility] Comment:Desirable LDL: less than 100 mg/dLNear Optimal/Above Optimal LDL: 110- 129 mg/dLBorderline High LDL: 130-159 mg/dLHigh LDL: 160-189 mg/dLVery High LDL: greater than or equal to 190 mg/dL HDL Cholesterol 54 >40 mg/dL [facility] Comment:Desirable HDL: great er than 40 mg/dL Note: This HDL assay may give artificially low results in patients with liver disease. Blood Venous blood specimen / Unknown 12/23/2024 9:38 AM EDT 12/23/2024 2:38 PM EDT us Mandi Pena MD LAB BLOOD ORDERABLES Final Resul t Performing Organization Address City/[facility]/ZIP Co de Phone Number [facility] [address] [place] [phone] * Basic Metabolic Panel (12/23/2024 9:38 AM EDT) Sodium 141 135 - 145 mmol/L [facility] Potassium 4.7 3.3 - 5.1 mmol/L [facility] Chloride 104 96 - 108 mmol/L [facility] Carbon Dioxide 27 22 - 29 mmol/L [facility] Anion Gap 15 12 - 20 [facility] Urea Nitrogen (BUN) 14 9 - 16 mg/dL [facility] Creatinine, Serum 0.75 0.5 - 1.4 mg/dL [facility] Estimated Glomerular Filt Rate >60 [facility] Comment:Chronic Kidney Disea se: Estimated GFR < 60 mL/min/1.64q9Vkmryp Kidney Disease: Estimated GFR < 15 mL/min/1.73m2 Glucose 83 60 - 115 mg/dL [facility] Calcium 9.4 8.4 - 10.2 mg/dL [facility] Blood Venous blood specimen / Unknown 12/23/2024 9:38 AM EDT 12/23/2024 2:38 PM EDT us Mandi Pena MD LAB BLOOD ORDERABLES Final Resul t [facility] [address] [place] [address] [phone] * BI Mammogram Screening Tomosynthesis Bilateral (06/10/2024 3:45 PM EDT) Anatomical Region Laterality Modality Breast Bilateral Mammography 06/10/2024 3:45 PM EDT Narrative 06/17/2024 5:12 PM EDT [facility] [address] [place] [address] Mammography Report Signed Patient: Silvia Sharma MR#: [id number] : 1970 Acct:[id number] Age/Sex: 53 / F ADM Date: 06/10/24 Loc: HO.MAMMO Attending Dr: Silvia Bowers MD Ordering Physician: Silvia Bowers MD Results: 1Nega tive Date of Service: 06/10/24 Follow Up: 1 Year From Orig inal Mammogram Procedure(s): MM tomosynthesis screening BI Accession Number(s): [id number] cc: Silvia Bowers MD EXAMINATION: MM SCREENING [...] Matilda Anderson DO 06/17/2024 05:09 PM EDT Dictated By: Matilda Anderson DO Signed By: <Electronically signed by Matilda Anderson DO in OV> 06/17/24 1709 DD/ 1545 TD/TT: 06/10/24 1603 Rn Maternity: Procedure Note Donotuseinterpreter, Image - 06/17/2024 [facility] [address] [place] [address] Mammography Report Signed Patient: Silvia SharmaMR#: [id number] : 1970Acct:[id number] Age/Sex: 53 / FADM Date: 06/10/24 Loc: HO.MAMMO Attending Dr: Silvia Bowers MD Ordering Physician: Silvia Bowers MDResults: 1Nega tive Date of Service: 06/10/24Follow Up: 1 Year From Orig inal Mammogram Procedure(s): MM tomosynthesis screening BI Accession Number(s): [id number] cc: Silvia Bowers MD EXAMINATION: MM SCREENING [...] 06/17/24 1709 DD/ 1545 TD/TT: 06/10/24 1603 Rn Maternity: us Silvia Bowers MD IM BI PROCEDURES Final Resul t * ThinPrep Imaging Pap and HPV mRNA E6/E7 (12/01/2023 9:30 AM EDT) HPV nRNA E6/E7 Not Detected Not Detected [facility] Comment:Methodology: Transcr iption-Mediated AmplificationThis assay detects E6/E7 viral messenger RNA (mRNA) from 14high-risk HPV types (16,18,31,33,35,39,45,51,52,56,58,59,66,68).Cervical sources are required for HPV testing.If a vaginal source from a patient who has had atotal hysterectomy with removal of cervix wassubmitted, please contact the testing laboratoryfor alternative testing options.For additional information, please refer tohttp://education.[employer]/faq/BAG681p8(This link if provided for information/educational purposes only.)THIS TEST WAS PERFORMED AT:[employer] [place], [place] [id number] WEEKS MD SOURCE: SEE NOTE [facility] Comment:None given Report Status: [facility] Clinical Information: SEE NOTE [facility] Comment:None given LMP: SEE NOTE [facility] Comment:NONE GIVEN Prev. PAP: SEE NOTE [facility] Comment:NONE GIVEN Prev. BX: SEE NOTE [facility] Comment:NONE GIVEN Statement Of Adequacy: SEE NOTE [facility] Comment:Satisfactory for noe luation.Endocervical/transformation zone componentpresent. General Categorization: [facility] Interpretation/Result: SEE NOTE [facility] Comment:Cytology Results: Ne gative for intraepitheliallesion or malignancy. Cytology Comment SEE NOTE [facility] Comment:This Pap test has be en evaluated with computerassisted technology. Investment Banking Analyst: SEE NOTE [facility] Comment:DCR, CT(ASCP)CT scre ening location: [place] [address] Review Investment Banking Analyst: SEE NOTE [facility] Comment:MXD, CT (ASCP)CT scr eening location: [place] [address] Pathologist [facility] PAP Infection [facility] See Note SEE NOTE [facility] Comment:EXPLANATORY NOTE:The Pap is a screening test for cervical cancer. It isnot a diagnostic test and is subject to false negativeand false positive results. It is most reliable when asatisfactory sample, regularly obtained, is submittedwith relevant clinical findings and history, and whenthe Pap result is evaluated along with historic andcurrent clinical information. 12/01/2023 9:30 AM EDT 12/01/2023 2:51 PM EDT Narrative [facility] - 12/07/2023 2:27 PM EDT SEE SCANNED RESULTS IN EMR us Silvia Bowers MD LAB PATHOLOGY ORDERABLES Dee l Result [facility] [address] [place] [phone] [phone] * HEPATITIS C ANTIBODY RFLX (08/31/2021 8:53 AM EDT) Pathologist [facility] Hepatitis C Antibody Nonreactive Nonreactive [facility] Comment: Antibodies to HCV not detected; does not exclude early acute HCV infection. 08/31/2021 8:53 AM EDT Silvia Bowers MD HISTORICAL/NON ORDERABLE LABS Final Result Performing Organization Address [facility] Co de Phone Number [facility] [address] * HIV AB/AG (08/31/2021 8:53 AM EDT) Pathologist [facility] HIV AB/AG Nonreactive Nonreactive [facility] Comment: HIV-1 p24 Ag and/or [...] of detection of this assay. The [employer] HIV Ag/Ab Combo assay result and supplemental assay results should be interpreted in conjunction with the patient's clinical presentation, history and other laboratory results. If the results are inconsistent with clinical evidence, additional testing is suggested to confirm the result. Hepatitis B Surface Antibody NONREACTIVE Nonreactive [facility] Comment:Nonreactive: < 8.00 mIU/mL Hepatitis B Surface Antigen Negative Negative [facility] 08/31/2021 8:53 AM EDT us Silvia Bowers MD HISTORICAL/NON ORDERABLE LABS Final Result Performing Organization Address [facility] Co de Phone Number [facility] [address] from Last 3 Months or Most Recently Relevant to Health Maintenance Insurance [facility] C3 Care Teams Emergency Technician Relationship Specialty Start Date End Date Silvia Bowers MD [address] [place] [phone] PCP - General Family Medicine 08/15/21
== END 2025-01-04 09:40 | disposition home or self-care (01) ==
LOC: HO.HWS 09:12
PROVIDERS: PCP Family Medicine; Visit Provider Obstetrics & Gynecology
DX: N90.7 Vulvar cyst (principal)
CPT/HCPCS: 99203

== ENCOUNTER 2025-01-04 09:11 | Outpatient (REF) | payer MEDICAID, SELFPAY | END 2025-01-04 09:12 | disposition home or self-care (01) | LOC: HO.LNP 09:11 | PROVIDERS: PCP Family Medicine; Visit Provider Obstetrics & Gynecology | DX: N90.7 Vulvar cyst (principal); Z11.51 Encounter for screening for human papillomavirus (HPV) | CPT/HCPCS: 87626; 88175; 99202 ==